=== PATIENT | male | born 1950 | race African-American/Black ===

== ENCOUNTER 2019-02-28 20:42 | Emergency (ER) | payer OTHER ==
--- OUTSIDE RECORDS SUMMARY | 2019-02-28 20:45 | XMS REPORT | Summary of Care ---
:1950 Author Organization [facility] - Health Address [address] [place] [address] Care Team Providers Name Role Phone Pcp, Patient Does Not Have A Primary Care Provider Encounter Details Date Type Department Care Team Description 10/16/2018 Orders Only [facility] Doctor Unassigned, No [address] [facility] [place] [address] [address] [place] [id number] Allergies No Known Allergiesdocumented as of this encounter (statuses as of 10/16/2018) Medications Medication Sig Dispensed Refills Start Date End Date Status amlodipine-benazepril Take 1 capsule by 0 Active 5-20 mg per capsule mouth daily. aspirin 81 mg chewable Take 1 tablet by 30 tablet 3 11/01/2016 Active tablet mouth daily. multivitamin tablet Take 1 tablet by 30 tablet 4 11/01/2016 Active mouth daily. [place]-3 Fatty Acids Take 2 tablets by 30 capsule 4 11/01/2016 Active (FISH OIL) 500 mg Cap mouth daily. Blood-Glucose Meter Use as directed, 1 Kit 0 01/28/2017 Active (BLOOD GLUCOSE TID, DX:E11.9 MONITORING) KitIndications: Type 2 diabetes mellitus without complication, without long-term current use of insulin magnesium oxide 400 mg Take 400 mg by 0 Active (241.3 mg magnesium) mouth daily. tablet flash glucose scanning 1 Each daily. 1 Each 0 04/06/2018 Active reader (FREESTYLE GT 14 DAY READER) MiscIndications: Type 2 diabetes mellitus without complication, without long-term current use of insulin flash glucose sensor 1 Each every 14 2 Kit 11 04/06/2018 Active (FREESTYLE GT 14 (fourteen) days. DAY SENSOR) KitIndications: Type 2 diabetes mellitus without complication, without long-term current use of insulin atorvastatin 10 mg Take 1 tablet by 90 tablet 3 04/06/2018 Active tabletIndications: mouth at bedtime. Type 2 diabetes mellitus without complication, without long-term current use of insulin metFORMIN 1,000 mg TAKE 1 TABLET BY 180 tablet 3 04/06/2018 Active tabletIndications: MOUTH TWICE A DAY Type 2 diabetes WITH MEALS mellitus without complication, without long-term current use of insulin gabapentin enacarbil Take 300 mg by 30 tablet 1 07/27/2018 Active (HORIZANT) 300 mg mouth daily. TbSRIndications: Diabetic neuropathy with neurologic complication ONETOUCH ULTRA BLUE USE DIRECTED, 300 Strip 0 07/31/2018 Active TEST STRIP TID, DX:E11.9 stripIndications: Type 2 diabetes mellitus without complication, without long-term current use of insulin documented as of this encounter (statuses as of 10/16/2018) Active Problems Problem Noted Date Numbness in feet 01/28/2017 Type 2 diabetes mellitus without complication, without long-term current 01/28 use of insulin Dyslipidemia 01/28/2017 Essential hypertension 01/28/2017 documented as of this encounter (statuses as of 10/16/2018) Social History Tobacco Use Types Packs/Day Years Used Date Never Smoker Alcohol Use Drinks/Week oz/Week Comments No Sex Assigned at Date Recorded Not on file Job Start Date Occupation Industry Not on file Not on file Not on file Travel History Travel Start Travel End No recent travel history available. documented as of this encounter Last Filed Vital Signs Not on filedocumented in this encounter Plan of Treatment Date Type Specialty Care Team Description 10/16/2018 Office Visit Endocrinology Diabetes & Bobby López [facility] Metabolism [address] [place], [place] [id number] Health Maintenance Due Date Last Done Comments HEPATITIS C (HCV) SCREEN 1950 CREATININE (SERUM) 11/20/1961 EYE EXAM 11/20/1961 URINE MICROALBUMIN 11/20/1961 DTaP,Tdap,and Td Vaccines (1 - 11/20/1970 Tdap) COLONOSCOPY 11/20/2001 Zoster Recombinant Vaccine 11/20/2001 (SHINGRIX) (1 of 2) Medicare Wellness Visit 11/20/2016 PNEUMOCOCCAL VACCINES 65+ (1 of 2 11/20/2016 - PCV13) LDL-C 11/01/2017 11/01/2016 FOOT EXAM 09/29/2018 09/29/2017, 09/29/2017, 06/03/2017, Additional history exists HgA1C 10/04/2018 04/06/2018, 09/29/2017, 06/03/2017, Additional history exists INFLUENZA VACCINE (#1) 2018 documented as of this encounter Procedures Procedure Name Priority Date/Time Associated Diagnosis Comments NO SHOW OR MISSED Routine 10/16/2018 8:28 AM APPOINTMENT POLICY CDT ACKNOWLEDGEMENT documented in this encounter Results Not on filedocumented in this encounter Insurance Payer Benefit Plan / Group Subscriber ID Effective Dates Phone Address Type AETNA AETNA HMO [id number] 2010-Present HMO documented as of this encounter
--- OUTSIDE RECORDS SUMMARY | 2019-02-28 20:45 | XMS REPORT ---
:1950 Author Organization [facility] Address [address] [place] [address] Care Team Providers Name Role Phone Unavailable Unavailable Unavailable Payers Payer Name Policy Type Policy Number Effective Date Expiration Date Problems This patient has no known problems. Allergies, Adverse Reactions, Alerts Allergy Allergy Status Severity Reaction(s) Onset Inactive Treating Comments Name Type Date Date Clinician No Known DA Active U 2018-08 Allergies 00:00:0 0 Medications This patient has no known medications. Results Test Description Test Time Test Comments Text Results Atomic Results Result Comments BASIC METABOLIC PANEL 2018-09-12 07:20:00 Test Item Value Reference Range Comments SODIUM (test code=NA) 141 MMOL/L 137-145 POTASSIUM (test code=K) 4.3 MMOL/L 3.5-5.1 CHLORIDE (test code=CL) 106 MMOL/L 98-107 CARBON DIOXIDE (test code=CO2) 29 MMOL/L 22-30 GLUCOSE (test code=GLU) 165 MG/DL 74-106 BLOOD UREA NITROGEN (test 12 MG/DL 9-20 code=BUN) GLOMERULAR FILTRATION RATE (test > 60 Reporting units: ml/min/1.73 m2 code=GFR) (Modified MDRD Formula)Reference Range: > or=60 ml/min/1.73 m2 CREATININE (test code=CREAT) 0.70 MG/DL 0.66-1.25 CALCIUM (test code=CA) 9.1 MG/DL 8.4-10.2 LIPID PROFILE (CORONARY RISK)2018-09-12 07:20:00 Test Item Value Reference Range Comments TRIGLYCERIDES (test code=TRIG) 47 MG/DL TRIGLYCERIDES REFERENCE RANGE:Normal: <150 mg/dLBorderline High: 150-199 mg/dLHigh: 200-499 mg/dLVery High: >=500 mg/dL CHOLESTEROL (test code=CHOL) 117 MG/DL <200 HDL CHOLESTEROL (test 29 MG/DL 40-59 code=HDL) LIPOPROTEIN LDL (test 87 MG/DL 0-99 code=LDL) OPTIMAL.........<100 mg/dLNEAR OPTIMAL/ABOVE OPTIMAL.........100-129 mg/dL BORDERLINE HIGH.........130-159 mg/dL HIGH.........160-189 mg/dL VERY HIGH.........>/=190 mg/dL [id number] 07:20:00 Test Item Value Reference Range Comments MAGNESIUM (test code=MAG) 2.2 MG/DL 1.6-2.3 PROTHROMBIN [id number] 07:10:00 Test Item Value Reference Range Comments PROTHROMBIN TIME PATIENT (test 11.4 SECONDS 9.6-11.6 code=PTP) INTERNATIONAL NORMAL RATIO 1.1 0.8-1.1 The INR is to be used only (test code=INR) for monitoring oral anticoagulanttherapy. INDICATION INR VALUE 1. Prophylaxis, deep venous thrombosis, including high risk surgery. 2.0 - 3.0 2. Prophylaxis, deep venous thrombosis, hip surgery, treatment for deep venous thrombosis or pulmonary prevention of systemic embolism in patients with valvular heart disease, atrial fibrillation, tissue heart valve, or acute myocardial infarction. 2.0 - 3.0 3. Mechanical prosthesis heart valves, recurrent systemic embolism. 3.0 - 4.5 PTT [id number] 07:10:00 Test Item Value Reference Range Comments PTT ACTIVATED (test code=APTT) 29.6 SECONDS 22.0-33.0 BASIC METABOLIC [id number] 07:10:00 Test Item Value Reference Range Comments SODIUM (test code=NA) 141 MMOL/L 137-145 POTASSIUM (test code=K) 4.3 MMOL/L 3.5-5.1 CHLORIDE (test code=CL) 106 MMOL/L 98-107 CARBON DIOXIDE (test code=CO2) 29 MMOL/L 22-30 GLUCOSE (test code=GLU) 165 MG/DL 74-106 BLOOD UREA NITROGEN (test 12 MG/DL 9-20 code=BUN) GLOMERULAR FILTRATION RATE > 60 Reporting units: ml/min/1.73 (test code=GFR) m2 (Modified MDRD Formula)Reference Range: > or=60 ml/min/1.73 m2 CREATININE (test code=CREAT) 0.70 MG/DL 0.66-1.25 CALCIUM (test code=CA) 9.1 MG/DL 8.4-10.2 LIPID PROFILE (CORONARY RISK)2018-09-12 07:10:00 Test Item Value Reference Range Comments TRIGLYCERIDES (test code=TRIG) 47 MG/DL TRIGLYCERIDES REFERENCE RANGE:Normal: <150 mg/dLBorderline High: 150-199 mg/dLHigh: 200-499 mg/dLVery High: >=500 mg/dL CHOLESTEROL (test code=CHOL) 117 MG/DL <200 HDL CHOLESTEROL (test 29 MG/DL 40-59 code=HDL) LIPOPROTEIN LDL (test MG/DL 0-99 code=LDL) [id number] 07:10:00 Test Item Value Reference Range Comments MAGNESIUM (test code=MAG) 2.2 MG/DL 1.6-2.3 CBC W/AUTO [id number] 06:46:00 Test Item Value Reference Range Comments WHITE BLOOD CELL (test code=WBC) 5.7 K/MM3 3.8-9.8 RED BLOOD CELL (test code=RBC) 4.65 M/MM3 3.95-5.67 HEMOGLOBIN (test code=HGB) 13.0 G/DL 12.4-16.7 HEMATOCRIT (test code=HCT) 41.1 % 35.9-49.5 MEAN CELL VOLUME (test code=MCV) 88 fL 81.7-96.1 MEAN CELL HGB (test code=MCH) 28.0 pg 27.6-33.2 MEAN CELL HGB CONCETRATION (test code=MCHC) 31.6 % 32.9-35.5 RED CELL DISTRIBUTION WIDTH (test code=RDW) 14.3 % 12.1-15.2 PLATELET COUNT (test code=PLT) 174 K/MM3 129-368 MEAN PLATELET VOLUME (test code=MPV) 10.4 fl 7.4-10.4 NEUTROPHIL % (test code=NT%) 65.3 % 43-75 IMMATURE GRANULOCYTE % (test code=IG%) 0.2 % 0.0-2.0 LYMPHOCYTE % (test code=LY%) 19.5 % 14-44 MONOCYTE % (test code=MO%) 11.3 % 4-13 EOSINOPHIL % (test code=EO%) 3.2 % 0-6 BASOPHIL % (test code=BA%) 0.5 % 0-2 NUCLEATED RBC % (test code=NRBC%) 0.0 % 0-1.0 NEUTROPHIL # (test code=NT#) 3.69 K/mm3 2.0-7.6 IMMATURE GRANULOCYTE # (test code=IG#) 0.01 x10 3/uL 0-0.03 LYMPHOCYTE # (test code=LY#) 1.10 K/mm3 1.0-3.8 MONOCYTE # (test code=MO#) 0.64 K/mm3 0.1-0.8 EOSINOPHIL # (test code=EO#) 0.18 K/mm3 0.0-0.2 BASOPHIL # (test code=BA#) 0.03 K/mm3 0.0-0.2 NUCLEATED RBC # (test code=NRBC#) 0.00 K/mm3 0.0-0.1
--- OUTSIDE RECORDS SUMMARY | 2019-02-28 20:45 | XMS REPORT | Summary of Care ---
:1950 Author Organization [facility] Address [address] [place] [id number] Care Team Providers Name Role Phone Pcp, Patient Does Not Have A Primary Care Provider Reason for Visit Reason Comments Refill Request Encounter Details Date Type Department Care Team Description 10/27/2018 Refill [facility] Endocrinology- Ken Cavazos MD Refill Request [address] Professional Office [place], [place] [id number] [place] [address] Dr. Romero [phone] [address] [place] [address] Allergies No Known Allergiesdocumented as of this encounter (statuses as of 10/27/2018) Medications Medication Sig Dispensed Refills Start Date End Date Status amlodipine-benazepr Take 1 0 Active il 5-20 mg per capsule by capsule mouth daily. aspirin 81 mg Take 1 tablet 30 tablet 3 11/01/2016 Active chewable tablet by mouth daily. multivitamin tablet Take 1 tablet 30 tablet 4 11/01/2016 Active by mouth daily. [place]-3 Fatty Acids Take 2 30 capsule 4 11/01/2016 Active (FISH OIL) 500 mg tablets by Cap mouth daily. Blood-Glucose Meter Use as 1 Kit 0 01/28/2017 Active (BLOOD GLUCOSE directed, MONITORING) TID, DX:E11.9 KitIndications: Type 2 diabetes mellitus without complication, without long-term current use of insulin magnesium oxide 400 Take 400 mg 0 Active mg (241.3 mg by mouth magnesium) tablet daily. atorvastatin 10 mg Take 1 tablet 90 tablet 3 04/06/2018 Active tabletIndications: by mouth at Type 2 diabetes bedtime. mellitus without complication, without long-term current use of insulin gabapentin Take 300 mg 30 tablet 1 07/27/2018 Active enacarbil by mouth (HORIZANT) 300 mg daily. TbSRIndications: Diabetic neuropathy with neurologic complication rivaroxaban Take 20 mg by 0 Active (XARELTO) 20 mg mouth. tablet sacubitril-valsarta Take 1 tablet 0 Active n (ENTRESTO) 49-51 by mouth. mg tablet furosemide 40 mg Take 40 mg by 0 Active tablet mouth daily. metFORMIN 1,000 mg TAKE 1 TABLET 180 tablet 3 10/16/2018 Active tabletIndications: BY MOUTH Type 2 diabetes TWICE A DAY mellitus without WITH MEALS complication, without long-term current use of insulin ONETOUCH VERIO Use to check 300 Strip 1 10/27/2018 Active stripIndications: blood sugar Type 2 diabetes 3X daily. mellitus without DX:E11.9 complication, without long-term current use of insulin ONETOUCH ULTRA BLUE USE 300 Strip 0 07/31/2018 10/27/2018 Discontinued TEST STRIP DIRECTED, stripIndications: TID, DX:E11.9 Type 2 diabetes mellitus without complication, without long-term current use of insulin documented as of this encounter (statuses as of 10/27/2018) Active Problems Problem Noted Date Numbness in feet 01/28/2017 Type 2 diabetes mellitus without complication, without long-term current 01/28 use of insulin Dyslipidemia 01/28/2017 Essential hypertension 01/28/2017 documented as of this encounter (statuses as of 10/27/2018) Social History Tobacco Use Types Packs/Day Years [...] Treatment Date Type Specialty Care Team Description 04/23/2019 Office Visit Endocrinology Diabetes & Bobby López Metabolism [address] [place] [address] [place] [address] [phone] Health Maintenance Due Date Last Done Comments HEPATITIS C (HCV) SCREEN 1950 CREATININE (SERUM) 11/20/1961 EYE EXAM 11/20/1961 URINE MICROALBUMIN 11/20/1961 DTaP,Tdap,and Td Vaccines (1 - 11/20/1970 Tdap) COLONOSCOPY 11/20/2001 Zoster Recombinant Vaccine 11/20/2001 (SHINGRIX) (1 of 2) Medicare Wellness Visit 11/20/2016 PNEUMOCOCCAL VACCINES 65+ (1 of 2 11/20/2016 - PCV13) LDL-C 11/01/2017 11/01/2016 FOOT EXAM 09/29/2018 09/29/2017, 09/29/2017, 06/03/2017, Additional history exists INFLUENZA VACCINE (#1) 2018 HgA1C 04/17/2019 10/16/2018, 04/06/2018, 09/29/2017, Additional history exists documented as of this encounter Results Not on filedocumented in this encounter Visit Diagnoses Diagnosis Type 2 diabetes mellitus without complication, without long-term current use of insulin documented in this encounter Insurance Payer Benefit Plan / Group Subscriber ID Effective Dates Phone Address Type AETNA AETNA HMO [id number] 2010-Present HMO documented as of this encounter
[2019-02-28] MEDS ORDERED: HYDROCODONE/APAP 5/325 MG TAB ONE (21:19)
[2019-02-28 21:34] LABS: Absolute Lymphocytes (CBC) 1.6 K/uL (0.7-4.9); Basophils % 0.8 % (0-1.3); Hematocrit 42.1 % (39.6-49.0); Lymphocytes % 20.3 % (15.3-44.8); MPV 8.8 fL (7.6-11.3); RBC Red Blood Cell Count 4.69 M/uL (4.33-5.43)
[2019-02-28 21:52] LABS: Bilirubin Total 0.9 mg/dL (0.2-1.0); Potassium 3.9 mmol/L (3.5-5.1); Protein, Total 7.4 g/dL (6.4-8.2)
--- NOTE | 2019-03-01 00:15 | EDPHYS ---
Physician Documentation [facility] Name: Noel Cobos Age: 68 yrs Sex: Male : 1950 Arrival Date: 02/28/2019 Time: 20:45 Bed 15 Private MD: ED Physician Jessica Watson HPI: 02/28 21:14 This 68 yrs old Black Male presents to ER via Ambulatory with complaints of Foot Injury.pm1 Historical: - Allergies: 20:56 No Known Allergies; aj1 - Home Meds: 20:56 aspirin 81 mg Oral chew 1 tab once daily [Active]; magnesium oxide 400 mg Oral tab aj1 daily [Active]; Entresto 97-103 mg oral tab 1 tab 2 times per day [Active]; Xarelto 20 mg oral tab 1 tab once daily [Active]; carvedilol 12.5 mg oral tab 1 tab every 12 hours [Active]; furosemide 40 mg Oral tab 1 tab once daily [Active]; atorvastatin 10 mg oral tab 1 tab once daily [Active]; metformin 1,000 mg Oral tab 1 tab 2 times per day [Active]; - PMHx: 20:56 Diabetes - NIDDM; Hyperlipidemia; Atrial Fib; CHF; Sleep Apnea; neuropathy; aj1 - Immunization history:: Flu vaccine is not up to date. - Social history:: Smoking status: Patient/guardian denies using tobacco. - Ebola Screening: : Patient denies travel to an Ebola-affected area in the 21 days before illness onset. Vital Signs: 20:56 BP 130 / 83; Pulse 64; Resp 18; Temp 97.8; Pulse Ox 97% on R/A; Weight 90.72 kg (R); aj1 Height 6 ft. 2 in. (187.96 cm) (R); Pain 6/10; 23:35 BP 131 / 84; Pulse 56; Resp 16; Pulse Ox 100% on R/A; Pain 3/10; aa1 03/01 01:18 BP 129 / 83; Pulse 61; Resp 16; Temp 97.6; Pulse Ox 99% on R/A; Pain 2/10; aa1 02/28 20:56 Body Mass Index 25.68 (90.72 kg, 187.96 cm) aj1 MDM: 02/28 21:01 Patient medically screened. pm1 03/01 00:12 Data reviewed: vital signs. Data interpreted: Pulse oximetry: on room air is 100 %. pm1 Interpretation: normal. Counseling: I had a detailed discussion with the patient and/or guardian regarding: the historical points, exam findings, and any diagnostic results supporting the discharge/admit diagnosis, lab results, radiology results, the need for outpatient follow up, to return to the emergency department if symptoms worsen or persist or if there are any questions or concerns that arise at home. 02/28 21:07 Order name: Foot Right 3 View XRAY pm1 02/28 21:08 Order name: CBC with Automated Diff; Complete Time: 23:44 EDMS 02/28 21:08 Order name: Comprehensive Metabolic Panel; Complete Time: 23:44 EDMS 02/28 21:07 Order name: IV Saline Lock; Complete Time: 21:29 pm1 Administered Medications: 02/28 21:21 Drug: [place] 5 mg-325 mg 1 tabs Route: PO; aa1 22:21 Follow up: Response: No adverse reaction; Pain is decreased aa1 03/01 00:27 Drug: Bactrim (160 mg-800 mg (DS) 1 tablet Route: PO; aa1 01:18 Follow up: Response: No adverse reaction aa1 00:27 Drug: Clindamycin 600 mg Route: IVPB; Infused Over: 30 mins; Site: right antecubital; aa1 :18 Follow up: IV Status: Completed infusion aa1 :27 Drug: Tetanus-Diphtheria Toxoid Adult 0.5 ml {Visual Manager: Omniture. Exp: aa1 01/07/2021. Lot #: [id number]. } Route: IM; Site: right deltoid; :18 Follow up: Response: No adverse reaction aa1 Disposition: 03/01/19 00:13 Discharged to Home. Impression: Cellulitis of right lower limb. - Condition is Stable. - Discharge Instructions: Cellulitis, Adult. - Prescriptions for Bactroban 2 % Topical Ointment - Apply to affected area 1 application by TOPICAL route every 12 hours; 30 gram. Clindamycin HCl 300 mg Oral Capsule - take 1 capsule by ORAL route every 6 hours for 10 days; 40 capsule. Tylenol- Codeine #3 300-30 mg Oral Tablet - take 2 tablets by ORAL route every 6 hours As needed; 20 tablet. Bactrim DS 800- 160 mg Oral Tablet - take 1 tablet by ORAL route every 12 hours for 10 days; 20 tablet. - Work release form, Medication Reconciliation Form, Thank You Letter, Antibiotic Education, Prescription Opioid Use form. - Follow up: Emergency Department; When: As needed; Reason: Worsening of condition. Follow up: Private Physician; When: 2 - 3 days; Reason: Recheck today's complaints, Continuance of care, Re-evaluation by your physician. - Problem is new. - Symptoms have improved. Addendum: 03/02/2019 04:34 Co-signature as Attending Physician, Jessica Watson MD. m a2 03/17/2019 17:54 Addendum: HPI: This 68 yrs old Male presents to the ER via ambulatory with complaints p m1 of right foot injury. He slipped and his right foot went underneath the edge of the cabinet and caused an abrasion to the dorsum of his foot. Occurred at home. Onset 1 week ago. Associated signs and symptoms: Negative for fever, discharge, numbness or tingling. The patient has not experienced similar symptoms in the past. It is unknown whether or not the patient has seen a physician recently. 18:00 Addendum: ROS: Constitutional: Negative for fever, chills, and weight loss, Neck: p m1 negative for injury, pain and swelling, Cardiovascular: negative for chest pain, palpitations, and edema, Respiratory: Negative for shortness of breath, cough, wheezing, and pleuritic chest pain, Abdomen/GI: Negative for abdominal pain, nausea, vomiting, diarrhea, and constipation, Back: negative for injury and pain, Neuro: Negative for headache, weakness, numbness, tingling, and seizure. MS/extremity: Positive for abrasion, tenderness and swelling to dorsum of right foot, Skin: Positive for abrasion to the dorsum of the right foot. 18:04 Addendum: Exam: Constitutional: This is a well developed, well nourished patient who is p m1 awake, alert, and in no acute distress. Head/Face: Normocephalic, atraumatic. Neck: Trachea midline, no cervical lymphadenopathy. Supple, FROM without nuchal rigidity, or vertebral point tenderness. No meningismus. Chest/axilla: Normal chest wall appearance and motion. Nontender with no deformity. No lesions are appreciated. Cardiovascular: No gallops, murmurs, or rubs. No pulse deficits. Respiratory: Lungs have equal breath sounds bilaterally, clear to auscultation. No rales, rhonchi, or wheezes noted. No increased work of breathing, no retraction or nasal flaring. Abdomen/GI: Soft, non-tender, with normal bowel sounds. No evidence of tenderness throughout. Back: No spinal tenderness. No costovertebral tenderness. Full range of motion. MS/Extremity: Pulses equal, no cyanosis. Neurovascular intact. FROM. Skin: Appearance: Normal except for affected area, injury, small abrasion to central aspect of dorsum of right foot. Small area of surrounding redness with bruising. Mild swelling to dorsum of right foot. No abscess present. Neuro: Orientation is normal, Motor is normal, moves all fours, Sensation is normal, no obvious gross deficits. Signatures: Dispatcher [employer] EDMS Nicole Phillips RN RN aj1 Maritza Abreu RN RN aa1 Carol Ann Olivas RN RN bb Burke Dietrich, WAD COMPRESSOR OPERATOR ADJUSTER WAD COMPRESSOR OPERATOR ADJUSTER pm1 Jessica Watson MD MD ma2 Corrections: (The following items were deleted from the chart) 03/01 01:20 00:13 03/01/2019 00:13 Discharged to Home. Impression: Cellulitis of right lower limb. aa1 Condition is Stable. Forms are Medication Reconciliation Form, Thank You Letter, Antibiotic Education, Prescription Opioid Use. Follow up: Emergency Department; When: As needed; Reason: Worsening of condition. Follow up: Private Physician; When: 2 - 3 days; Reason: Recheck today's complaints, Continuance of care, Re-evaluation by your physician. Problem is new. Symptoms have improved. pm1 01:34 01:20 03/01/2019 00:13 Discharged to Home. Impression: Cellulitis of right lower limb. bb Condition is Stable. Discharge Instructions: Cellulitis, Adult. Prescriptions for Bactroban 2 % Topical Ointment - Apply to affected area 1 application by TOPICAL route every 12 hours; 30 gram, Clindamycin HCl 300 mg Oral Capsule - take 1 capsule by ORAL route every 6 hours for 10 days; 40 capsule, Tylenol-Codeine #3 300-30 mg Oral Tablet - take 2 tablets by ORAL route every 6 hours As needed; 20 tablet, Bactrim DS 800-160 mg Oral Tablet - take 1 tablet by ORAL route every 12 hours for 10 days; 20 tablet. and Forms are Medication Reconciliation Form, Thank You Letter, Antibiotic Education, Prescription Opioid Use. Follow up: Emergency Department; When: As needed; Reason: Worsening of condition. Follow up: Private Physician; When: 2 - 3 days; Reason: Recheck today's complaints, Continuance of care, Re-evaluation by your physician. Problem is new. Symptoms have improved. aa1
--- NOTE | 2019-03-01 00:15 | ER ---
Nurse's Notes [facility] Name: Noel Cobos Age: 68 yrs Sex: Male : 1950 Arrival Date: 02/28/2019 Time: 20:45 Bed 15 Private MD: Diagnosis: Cellulitis of right lower limb Presentation: 02/28 20:48 Presenting complaint: Patient states: "I slipped a fell last Friday and my foot went aj1 under the cabinet and it put a cut on my foot and it looks like it could be infected now" Patient reports pain to right foot. Reports redness and swelling to foot, denies drainage. Transition of care: patient was not received from another setting of care. Onset of symptoms was February 28, 2019. Risk Assessment: Do you want to hurt yourself or someone else? Patient reports no desire to harm self or others. Initial Sepsis Screen: Does the patient meet any 2 criteria? No. Patient's initial sepsis screen is negative. Does the patient have a suspected source of infection? No. Patient's initial sepsis screen is negative. Care prior to arrival: None. 20:48 Method Of Arrival: Ambulatory aj1 20:48 Acuity: AUDREY 4 aj1 Triage Assessment: 20:56 General: Appears in no apparent distress. comfortable, Behavior is calm, cooperative, aj1 appropriate for age. Pain: Pain currently is 6 out of 10 on a pain scale. at worst was 10 out of 10 on a pain scale. Neuro: Level of Consciousness is awake, alert, obeys commands. Cardiovascular: Patient's skin is warm and dry. Respiratory: Airway is patent Respiratory effort is even, unlabored, Respiratory pattern is regular. Musculoskeletal: Range of motion: intact in all extremities. Injury Description: fall injury. Historical: - Allergies: 20:56 No Known Allergies; aj1 - Home Meds: 20:56 aspirin 81 mg Oral chew 1 tab once daily [Active]; magnesium oxide 400 mg Oral tab aj1 daily [Active]; Entresto 97-103 mg oral tab 1 tab 2 times per day [Active]; Xarelto 20 mg oral tab 1 tab once daily [Active]; carvedilol 12.5 mg oral tab 1 tab every 12 hours [Active]; furosemide 40 mg Oral tab 1 tab once daily [Active]; atorvastatin 10 mg oral tab 1 tab once daily [Active]; metformin 1,000 mg Oral tab 1 tab 2 times per day [Active]; - PMHx: 20:56 Diabetes - NIDDM; Hyperlipidemia; Atrial Fib; CHF; Sleep Apnea; neuropathy; aj1 - Immunization history:: Flu vaccine is not up to date. - Social history:: Smoking status: Patient/guardian denies using tobacco. - Ebola Screening: : Patient denies travel to an Ebola-affected area in the 21 days before illness onset. Screenin:26 Abuse screen: Denies threats or abuse. Denies injuries from another. Nutritional aa1 screening: No deficits noted. Tuberculosis screening: No symptoms or risk factors identified. Fall Risk None identified. Assessment: 21:22 General: Appears in no apparent distress. comfortable, Behavior is calm, cooperative, aa1 appropriate for age. Pain: Complains of pain in left foot. Neuro: Level of Consciousness is awake, alert, obeys commands, Oriented to person, place, time, situation, Moves all extremities. Full function Gait is steady. Respiratory: Airway is patent Respiratory effort is even, unlabored, Respiratory pattern is regular, symmetrical. GI: No signs and/or symptoms were reported involving the gastrointestinal system. : No signs and/or symptoms were reported regarding the genitourinary system. EENT: No signs and/or symptoms were reported regarding the EENT system. Derm: Skin is intact, is healthy with good turgor, Skin is pink, warm \\T\\ dry. Bruising that is on left foot. Musculoskeletal: Circulation, motion, and sensation intact. Capillary refill < 3 seconds, Swelling present in left foot. Injury Description: Abrasion sustained to dorsum of left foot is scabbed. 22:30 Reassessment: Patient appears in no apparent distress at this time. Patient and/or aa1 family updated on plan of care and expected duration. Pain level reassessed. Patient is alert, oriented x 3, equal unlabored respirations, skin warm/dry/pink. Awaiting lab results. 23:35 Reassessment: Patient appears in no apparent distress at this time. Patient and/or aa1 family updated on plan of care and expected duration. Pain level reassessed. Patient is alert, oriented x 3, equal unlabored respirations, skin warm/dry/pink. Awaiting provider reassessment. 01/13 00:27 Reassessment: Patient appears in no apparent distress at this time. Patient and/or aa1 family updated on plan of care and expected duration. Pain level reassessed. Patient is alert, oriented x 3, equal unlabored respirations, skin warm/dry/pink. Patient denies pain at this time. Pt to be dc'd once IV clindamycin complete. 01:18 Reassessment: Patient appears in no apparent distress at this time. Patient is alert, aa1 oriented x 3, equal unlabored respirations, skin warm/dry/pink. Discussed d/c \\T\\ f/u instructions with pt; denies questions or concerns at this time. Ambulatory to lobby with steady gait. Patient states feeling better. Vital Signs: 02/28 20:56 BP 130 / 83; Pulse 64; Resp 18; Temp 97.8; Pulse Ox 97% on R/A; Weight 90.72 kg (R); aj1 Height 6 ft. 2 in. (187.96 cm) (R); Pain 6/10; 23:35 BP 131 / 84; Pulse 56; Resp 16; Pulse Ox 100% on R/A; Pain 3/10; aa1 03/01 01:18 BP 129 / 83; Pulse 61; Resp 16; Temp 97.6; Pulse Ox 99% on R/A; Pain 2/10; aa1 02/28 20:56 Body Mass Index 25.68 (90.72 kg, 187.96 cm) aj1 ED Course: 02/28 20:45 Patient arrived in ED. jg7 20:50 Triage completed. aj1 20:56 Arm band placed on Patient placed in an exam room. aj1 21:01 Burke Dietrich NP is PHCP. pm1 21:01 Jessica Watson MD is Attending Physician. pm1 21:08 Maritza Abreu, ANUJ is Primary Nurse. aa1 21:25 Inserted saline lock: 20 gauge in right antecubital area, using aseptic technique. ds4 Blood collected. 21:26 Patient has correct armband on for positive identification. Bed in low position. Call aa1 light in reach. Pulse ox on. NIBP on. 21:29 CBC with Automated Diff Sent. ds4 21:30 Comprehensive Metabolic Panel Sent. ds4 21:48 Foot Right 3 View XRAY In Process Unspecified. EDMS 03/01 01:18 No provider procedures requiring assistance completed. IV discontinued, intact, aa1 bleeding controlled, No redness/swelling at site. Pressure dressing applied. 01:34 Primary Nurse role handed off by Maritza Abreu RN bb Administered Medications: 02/28 21:21 Drug: Ringling 5 mg-325 mg 1 tabs Route: PO; aa1 22:21 Follow up: Response: No adverse reaction; Pain is decreased aa1 03/01 00:27 Drug: Bactrim (160 mg-800 mg (DS) 1 tablet Route: PO; aa1 01:18 Follow up: Response: No adverse reaction aa1 00:27 Drug: Clindamycin 600 mg Route: IVPB; Infused Over: 30 mins; Site: right antecubital; aa1 :18 Follow up: IV Status: Completed infusion aa1 :27 Drug: Tetanus-Diphtheria Toxoid Adult 0.5 ml {Sterilisation Technician: Biletu. Exp: aa1 01/07/2021. Lot #: [id number]. } Route: IM; Site: right deltoid; 01:18 Follow up: Response: No adverse reaction aa1 Outcome: 00:13 Discharge ordered by MD. pm1 01:18 Discharged to home ambulatory, with significant other. aa1 01:18 Condition: good 01:18 Discharge instructions given to patient, significant other, Instructed on discharge instructions, follow up and referral plans. medication usage, Demonstrated understanding of instructions, follow-up care, medications, Prescriptions given X 4. 01:20 Patient left the ED. aa1 01:34 Patient left the ED. bb Signatures: Dispatcher [employer] EDIL Nicole Phillips RN RN aj1 Maritza Abreu, RN RN aa1 Carol Ann Olivas RN RN Juan Daniel Cota ds4 Burke Dietrich NP PNEUMATIC SYSTEM CONVEYOR OPERATOR pm1 Simona Quiñonez jg7
[2019-03-01] MEDS ORDERED: CLINDAMYCIN 600MG/D5W 600 MG/50 ML BAG IV ONE (00:28)
[2019-03-01] MEDS ORDERED: TETANUS & DIPHTHERIA TOX,ADULT 0.5 ML VIAL ONE (00:28)
[2019-03-01] MEDS ORDERED: SMZ./TMP. 800/160 MG TABLET ONE (00:28)
[2019-03-01 02:03] VITALS: BP 129/83; TEMP 97.6; O2SAT 99
--- NOTE | 2019-03-01 08:10 | RAD REPORT ---
EXAM DESCRIPTION: RAD - Foot Right 3 View - 02/28/2019 9:48 pm CLINICAL HISTORY: Right foot pain FINDINGS: No fracture or dislocation is seen No bone or joint abnormality noted
== END 2019-03-01 01:34 | disposition home or self-care (01) ==
LOC: ER 20:42
DX: L03.115 Cellulitis of right lower limb (principal); E11.9 Type 2 diabetes mellitus without complications; E78.5 Hyperlipidemia, unspecified; I48.91 Unspecified atrial fibrillation; I50.9 Heart failure, unspecified
CPT/HCPCS: 36415; 80053; 85025; 90471; 90714; 96365; 99284

== ENCOUNTER 2019-12-03 15:19 | Emergency (ER) | payer OTHER ==
--- OUTSIDE RECORDS SUMMARY | 2019-12-03 15:22 | XMS REPORT | Summary of Care ---
:1950 Author Organization [facility] Address [address] [place] [id number] Care Team Providers Name Role Phone Pcp, Patient Does Not Have A Primary Care Provider +1-000-00 0-0000 Reason for Visit Reason Comments Refill Request Encounter Details Date Type Department Care Team Description 10/31/2019 Refill [facility] Gonzalez Hernandez MD Refill Request Neurology-[address] [place] [id number] [address] [place] [address] [phone] Allergies No Known Allergiesdocumented as of this encounter (statuses as of 11/10/2019) Medications Medication Sig Dispensed Refills Start Date End Date Status amlodipine-benaze Take 1 0 Ac tive pril 5-20 mg per capsule by capsule mouth daily. aspirin 81 mg Take 1 30 tablet 3 11/01/2016 Activ e chewable tablet tablet by mouth daily. multivitamin Take 1 30 tablet 4 11/01/2016 Active tablet tablet by mouth daily. [place]-3 Fatty Take 2 30 capsule 4 11/01/2016 Acti ve Acids (FISH OIL) tablets by 500 mg Cap mouth daily. Blood-Glucose Use as 1 Kit 0 01/28/2017 Activ e Meter (BLOOD directed, GLUCOSE TID, MONITORING) DX:E11.9 KitIndications: Type 2 diabetes mellitus without complication, without long-term current use of insulin magnesium oxide Take 400 mg 0 Ac tive 400 mg (241.3 mg by mouth magnesium) tablet daily. rivaroxaban Take 20 mg 0 Active (XARELTO) 20 mg by mouth. tablet sacubitril-valsar Take 1 0 Ac tive osuna (ENTRESTO) tablet by 49-51 mg tablet mouth. furosemide 40 mg Take 40 mg 0 Ac tive tablet by mouth daily. ONETOUCH VERIO Use to check 300 Strip 1 10/27/2018 A ctive stripIndications: blood sugar Type 2 diabetes 3X daily. mellitus without DX:E11.9 complication, without long-term current use of insulin GARLIC ORAL Take by 0 Active mouth. gabapentin Take by 0 Active enacarbil mouth. (HORIZANT) 300 mg TbSR atorvastatin 40 Take 40 mg 0 Act gaby mg tablet by mouth at bedtime. metformin ER 750 Take 1 180 tablet 3 10/22/2019 A ctive mg 24 hr tablet by tabletIndications mouth 2 : Type 2 diabetes (two) times mellitus without daily. complication, without long-term current use of insulin GABAPENTIN 300 mg TAKE 1 180 capsule 1 11/10/2019 Active capsuleIndication CAPSULE BY s: Diabetic MOUTH TWICE neuropathy with A DAY neurologic complication GABAPENTIN 300 mg TAKE 1 1 capsule 0 05/11/2019 D iscontinued capsuleIndication CAPSULE BY 0 ( Reorder) s: Diabetic MOUTH TWICE neuropathy with A DAY neurologic complication documented as of this encounter (statuses as of 11/10/2019) Active Problems Problem Noted Date Numbness in feet 01/28/2017 Type 2 diabetes mellitus without complication, without long-term current 01/28/2017 use of insulin Dyslipidemia 01/28/2017 Essential hypertension 01/28/2017 documented as of this encounter (statuses as of 11/10/2019) Social History Tobacco Use Types Packs/Day Years Used Date Never Smoker Smokeless Tobacco: Never Used Alcohol Use Drinks/Week oz/Week Comments No Sex Assigned at Date Recorded Not on file COVID-19 Exposure Response Date Recorded In the last month, have you been in contact with No / Unsure 10/22/2019 9:37 AM CDT someone who was confirmed or suspected to have Coronavirus / COVID-19? documented as of this encounter Last Filed Vital Signs Not on filedocumented in this encounter Miscellaneous Notes Telephone Encounter - Feli Ritchie LVN - 11/03/2019 10:49 AM CDTDr. Hernandez, Pharmacy has sent a refill request for Gabapentin 300 mg tabs. ROBBIE:3-20-20 Impression: I recommended that the patient try the Horizant, I had also suggested a TENS unit, low-level electrical stimulation particularly in the feet could help with his neuropathic pain symptoms. Would you like to refill the gabapentin 300 mg or have patient take the Horizant? Please review and advise. documented in this encounter Plan of Treatment Date Type Specialty Care Team Description 04/21/2020 Office Visit Endocrinology Diabetes & Bobby Lira MD Metabolism [address] [facility] [address] [place] [address] [phone] Health Maintenance Due Date Last Done Comments HEPATITIS C (HCV) SCREEN 1950 CREATININE (SERUM) 11/20/1961 EYE EXAM 11/20/1961 URINE MICROALBUMIN 11/20/1961 DTaP,Tdap,and Td Vaccines (1 - 11/20/1970 Tdap) COLON CANCER SCREENING ANNUAL 11/20/2001 FIT/FOBT COLON CANCER SCREENING FIT DNA 11/20/2001 EVERY 3 YEARS COLON CANCER SCREENING 11/20/2001 SIGMOIDOSCOPY EVERY 5 YEARS COLONOSCOPY 11/20/2001 Colorectal Cancer Screening 11/20/2001 Zoster Recombinant Vaccine 11/20/2001 (SHINGRIX) (1 of 2) Medicare Wellness Visit 11/20/2016 PNEUMOCOCCAL VACCINES 65+ (1 of 1 11/20/2016 - PPSV23) LDL-C 11/01/2017 11/01/2016 FOOT EXAM 09/29/2018 09/29/2017, 09/29/2017, 06/03/2017, Additional history exists INFLUENZA VACCINE (#1) 2019 HgA1C 04/20/2020 10/22/2019, 04/23/2019, 10/16/2018, Additional history exists Depression Screening 07/08/2020 07/09/2019 documented as of this encounter Results Not on filedocumented in this encounter Visit Diagnoses Diagnosis Diabetic neuropathy with neurologic comp lication Type II or unspecified type diabetes girma litus with neurological manifestations, not stated as uncontrolled documented in this encounter Insurance Payer Benefit Plan / Group Subscriber ID Effective Dates Phone Address Type AETNA AETNA HMO [id number] 2010-Present [place] documented as of this encounter
--- OUTSIDE RECORDS SUMMARY | 2019-12-03 15:22 | XMS REPORT | Summary of Care ---
:1950 Author Organization [facility] Address [address] [place] [id number] Care Team Providers Name Role Phone Pcp, Patient Does Not Have A Primary Care Provider +1-000-00 0-0000 Reason for Visit Reason Comments Refill Request Encounter Details Date Type Department Care Team Description 11/04/2019 Telephone [facility] Gonzalez Hernandez MD Refill Request Neurology-[address] [place] [id number] [address] [place] [address] [phone] Allergies No Known Allergiesdocumented as of this encounter (statuses as of 11/09/2019) Medications Medication Sig Dispensed Refills Start Date End Date Status amlodipine-benazep Take 1 0 A ctive ril 5-20 mg per capsule by capsule mouth daily. aspirin 81 mg Take 1 30 tablet 3 11/01/2016 Activ e chewable tablet tablet by mouth daily. multivitamin Take 1 30 tablet 4 11/01/2016 Active tablet tablet by mouth daily. [place]-3 Fatty Take 2 30 capsule 4 11/01/2016 [...] Active (XARELTO) 20 mg by mouth. tablet sacubitril-valsart Take 1 0 A ctive an (ENTRESTO) tablet by 49-51 mg tablet mouth. [...] mouth. (HORIZANT) 300 mg TbSR atorvastatin 40 mg Take 40 mg 0 Active tablet by mouth at bedtime. metformin ER 750 Take 1 180 tablet 3 10/22/2019 A ctive mg 24 hr tablet by tabletIndications: mouth 2 Type 2 diabetes (two) times mellitus without daily. complication, without long-term current use of insulin gabapentin 300 mg Take 1 60 capsule 3 11/09/2019 Active capsuleIndications capsule by : Diabetic mouth 2 neuropathy with (two) times neurologic daily. complication GABAPENTIN 300 mg TAKE 1 1 capsule 0 05/11/2019 D iscontinued capsuleIndications CAPSULE BY 0 (Reorder) : Diabetic MOUTH TWICE neuropathy with A DAY neurologic complication documented as of this encounter (statuses as of 11/09/2019) Active Problems Problem Noted Date Numbness in feet 01/28/2017 Type 2 diabetes mellitus without complication, without long-term current 01/28/2017 use of insulin Dyslipidemia 01/28/2017 Essential hypertension 01/28/2017 documented as of this encounter (statuses as of 11/09/2019) Social History Tobacco Use Types Packs/Day Years [...] this encounter Miscellaneous Notes Telephone Encounter - Shelby Parikh - 11/09/2019 10:19 AM CDTNOV not scheduled ROBBIE 05/07/19 Per last chart note, medication refilled elephone Encounter - Brianne Laughlin - 11/04/2019 3:21 PM CDTNoel Cobos is a 68 year old male patient calling for refill on GABAPENTIN 300 mg capsule. [id number] [place], [place] - [address] [facility] [address] [facility] [id number] documented in this encounter Plan of Treatment Date Type Specialty Care Team Description 04/21/2020 Office Visit Endocrinology Diabetes & Bobby Lira MD Metabolism [address] [place] [address] [phone] Health Maintenance Due Date Last Done Comments [...] Effective Dates Phone Address Type AETNA AETNA O [id number] 2010-Present [place] documented as of this encounter
--- OUTSIDE RECORDS SUMMARY | 2019-12-03 15:22 | XMS REPORT | Summary of Care ---
:1950 Author Organization [facility] Address [address] [place] [id number] Care Team Providers Name Role Phone Pcp, Patient Does Not Have A Primary Care Provider +1-000-00 0-0000 Reason for Visit Reason Comments Refill Request Metformin 1,000 MG Encounter Details Date Type Department Care Team Description 10/01/2019 Telephone [facility] Bobby López, Refill Re madhav Endocrinology- (Metformin 1,000 MG) [address] [facility], [address] [place], [place] [id number] [place] [address] [phone] [id number] [phone] Allergies No Known Allergiesdocumented as of this encounter (statuses as of 10/04/2019) Medications Medication Sig Dispensed Refills Start Date End Date Status amlodipine-benazep Take 1 0 A ctive ril 5-20 mg per capsule by capsule mouth daily. aspirin 81 mg Take 1 30 tablet 3 11/01/2016 Activ e chewable tablet tablet by mouth daily. multivitamin Take 1 30 tablet 4 11/01/2016 Active tablet tablet by mouth daily. [place]-3 Fatty Take 2 30 capsule 4 11/01/2016 [...] tablet daily. atorvastatin 10 mg Take 1 90 tablet 3 04/06/2018 Active tabletIndications: tablet by Type 2 diabetes mouth at mellitus without bedtime. complication, without long-term current use of insulin rivaroxaban Take 20 mg 0 Active (XARELTO) [...] of insulin GABAPENTIN 300 mg TAKE 1 1 capsule 0 05/11/2019 A ctive capsuleIndications CAPSULE BY : Diabetic MOUTH TWICE neuropathy with A DAY neurologic complication GARLIC ORAL Take by 0 Active mouth. multivit,thx,calci Take by 0 A ctive um,iron,mins mouth. (MULTIVITAMIN AND MINERAL ORAL) metFORMIN 1,000 mg TAKE 1 180 tablet 0 10/01/2019 Active tabletIndications: TABLET BY Type 2 diabetes MOUTH TWICE mellitus without A DAY WITH complication, MEALS without long-term current use of insulin metFORMIN 1,000 mg TAKE 1 180 tablet 3 10/16/2018 Discontinued tabletIndications: TABLET BY 0 ( Reorder) Type 2 diabetes MOUTH TWICE mellitus without A DAY WITH complication, MEALS without long-term current use of insulin documented as of this encounter (statuses as of 10/04/2019) Active Problems Problem Noted Date Numbness in feet 01/28/2017 Type 2 diabetes mellitus without complication, without long-term current 01/28/2017 use of insulin Dyslipidemia 01/28/2017 Essential hypertension 01/28/2017 documented as of this encounter (statuses as of 10/04/2019) Social History Tobacco Use Types Packs/Day Years Used Date Never Smoker Alcohol Use Drinks/Week oz/Week Comments No Sex Assigned at Date Recorded Not on file documented as of this encounter Last Filed Vital Signs Not on filedocumented in this encounter Miscellaneous Notes Telephone Encounter - Iveth Medellin MA - 10/01/2019 3:14 PM CDTLOV: NOV:10/22/2019 Plan: Continue metformin 1000 mg twice daily Refills sent to pharmacy. documented in this encounter Plan of Treatment Date Type Specialty Care Team Description 10/22/2019 Office Visit Endocrinology Diabetes & Nikolai y, Bobby Bartholomew MD Metabolism [address] [place], [place] [address] [phone] 11/05/2019 Office Visit Urology Marc Torres MD [address] [place] [phone] Health Maintenance Due Date Last Done Comments [...] history exists INFLUENZA VACCINE (#1) 2019 HgA1C 10/24/2019 04/23/2019, 10/16/2018, 04/06/2018, Additional history exists Depression Screening 07/08/2020 07/09/2019 documented as of this encounter Results Not on filedocumented in this encounter Visit Diagnoses Diagnosis Type 2 diabetes mellitus without complic ation, without long-term current use of insulin documented in this encounter Insurance Payer Benefit Plan / Group Subscriber ID Effective Dates Phone Address Type AETNA AETNA HMO [id number] 2010-Present [place] documented as of this encounter
--- OUTSIDE RECORDS SUMMARY | 2019-12-03 15:23 | XMS REPORT | Summary of Care ---
:1950 Author Organization [facility] Address [address] [place] [address] Care Team Providers Name Role Phone Pcp, Patient Does Not Have A Primary Care Provider +1-000-00 0-0000 Reason for Visit Reason Comments Follow-up Diabetes Mellitus II LAB POCT a1c done in office toda y Encounter Details Date Type Department Care Team Description 10/22/2019 Office Visit [facility] Bobby López, Type 2 di abetes mellitus without complication, without long-term current use of insulin (Primary Dx); Endocrinology- MD Essential hypertension; [address] Dyslipidemia 146 [facility] [address], [address] [place] [address] [place], [place] [phone] [id number] [phone] Allergies No Known Allergiesdocumented as of this encounter (statuses as of 2019) Medications Medication Sig Dispensed Refills Start Date End Date Status amlodipine-benazep Take 1 0 A ctive ril 5-20 mg per capsule by capsule mouth daily. aspirin 81 mg Take 1 30 tablet 3 11/01/2016 Activ e chewable tablet tablet by mouth daily. multivitamin Take 1 30 tablet 4 11/01/2016 Active tablet tablet by mouth daily. Stebbins-3 Fatty Take 2 30 capsule 4 11/01/2016 [...] of insulin atorvastatin 10 mg Take 1 90 tablet 3 04/06/2018 Discontinued tabletIndications: tablet by 0 Type 2 diabetes mouth at mellitus without bedtime. complication, without long-term current use of insulin GABAPENTIN 300 mg TAKE 1 1 capsule 0 05/11/2019 D iscontinued capsuleIndications CAPSULE BY 0 (Reorder) : Diabetic MOUTH TWICE neuropathy with A DAY neurologic complication multivit,thx,calci Take by 0 D iscontinued um,iron,mins mouth. 0 (MULTIVITAMIN AND MINERAL ORAL) metFORMIN 1,000 mg TAKE 1 180 tablet 0 10/01/2019 Discontinued tabletIndications: TABLET BY 0 Type 2 diabetes MOUTH TWICE mellitus without A DAY WITH complication, MEALS without long-term current use of insulin documented as of this encounter (statuses as of 2019) Active Problems Problem Noted Date Numbness in feet 01/28/2017 Type 2 diabetes mellitus without complication, without long-term current 01/28/2017 use of insulin Dyslipidemia 01/28/2017 Essential hypertension 01/28/2017 documented as of this encounter (statuses as of 2019) Social History Tobacco Use Types Packs/Day Years [...] of this encounter Last Filed Vital Signs Vital Sign Reading Time Taken Comments Blood Pressure 119/79 10/22/2019 9:50 AM CDT Pulse 71 10/22/2019 9:50 AM CDT Temperature - - Respiratory Rate 19 10/22/2019 9:50 AM CDT Oxygen Saturation - - Inhaled Oxygen Concentration - - Weight 91.4 kg (201 lb 6.4 oz) 10/22/2019 9:50 AM CDT Height 188 cm (6' 2") 10/22/2019 9:50 AM CDT Body Mass Index 25.86 10/22/2019 9:50 AM CDT documented in this encounter Patient Instructions Patient InstructionsBobby López MD - 10/22/2019 9:30 AM CDTSwitch to metformin 750 mg extended release twice daily. Continue to work on improving your eating habits and avoiding fried foods. Continue your physical activity. documented in this encounter Progress Notes Bobby López MD - 10/22/2019 9:30 AM CDT Chief Complaint Patient presents with Follow-up Diabetes Mellitus II LAB POCT a1c done in office today HPI Patient is a 69 year old man with CHF, atrial fibrillation who is here today for follow up on type 2DM. Glucose meter was downloaded and seems his FBG range 120- 140s. Notes he occasionally checks and typically will only check in the mornings. Hypoglycaemia isn't a feature. He is on metformin 1000 mgtwice daily. He notes an increase in loose stools with taking this medication. Eating habits are variable but he is consistent with walking for exercise. Pt c/o significant neuropathy. Additionally, patient c/o ED. On Viagra with no improvement. Last Lab Results Health Maintenance Due POCT HBA1C (%) Date Value 10/22/2019 7.0 (A) Diabetes related Health Maintenance Due Topic Date Due EYE EXAM 11/20/1961 URINE MICROALBUMIN 11/20/1961 CREATININE (SERUM) 11/20/1961 PNEUMOCOCCAL VACCINES 65+ (1 of 1 - PPSV23) 11/20/2016 LDL-C 11/01/2017 FOOT EXAM 09/29/2018 Previous Pneumococcal / Influenza Immunizations No immunizations on file. Recent Effervescent Salts Compounder Visits None Recent Ophthalmology Visits None No results found for: CREAT No results found for: ALBU No results found for: CHOL No results found for: TRIG No results found for: LDL Diabetes Relevant Medication Classes Last refreshed: 11/10/2019 3:02 PM: Prescribed DAGO inhibitor No Last refreshed: 11/10/2019 3:02 PM: Prescribed ARBs No Last refreshed: 11/10/2019 3:02 PM: Prescribed statins Yes Last refreshed: 11/10/2019 3:02 PM: Prescribed antiplatelets No Last refreshed: 11/10/2019 3:02 PM: Prescribed aspirin Yes Last refreshed: 11/10/2019 3:02 PM: On Fibrates No Current as of: 11/10/2019 3:02 PM HISTORY Reviewed past medical, surgical, social, family history and no changes REVIEW OF SYSTEMS Constitutional: Denies weight changes Eyes: denies blurry vision, denies decreased vision and denies diplopia. Cardiovascular: denies chest pain and denies palpitations. Respiratory: denies chest congestion and denies shortness of breath. Gastrointestinal: denies abdominal pain, denies constipation, denies diarrhea and denies nausea. Musculoskeletal: Denies myalgias Neuro: +paraesthesias Endocrine: Denies intolerance to cold or heat PHYSICAL EXAM BP 119/79 (BP Location: Left arm, Patient Position: Sitting, BP CUFF SIZE: Adult Large) | Pulse 71| Resp 19 | Ht 6' 2" (1.88 m) | Wt 201 lb 6.4 oz (91.4 kg) | BMI 25.86 kg/m General: alert, oriented times three, no apparent distress, appearing age appropriate. Neck: no acanthosis nigricans and negative findings: carotids without bruits Lungs: no wheezes or crackles. CTAB Heart: regular rate and rhythm. No murmurs Neuro: negative findings: no tremor noted. Component Latest Ref Rng & Units 09/29/2017 06/03/2017 01/28/2017 11/01/2016 9:40 AM 12:00 AM 2:01 PM 12:00 AM POCT T. CHOL 240 mg/dL 165 POCT HDL 60 mg/dL 31 POCT TRIGL 400 mg/dL 73 POCT TC/HDL RATIO 5 3.9 POCT LDL 160 mg/dL 120 POCT HBA1C 4 - 6 % 8.2 (A) 8.1 (A) 8.0 (A) Component Latest Ref Rng & Units 04/06/2018 09/29/2017 06/03/2017 8:47 AM 9:40 AM 12:00 AM POCT HBA1C 4 - 6 % 8.0 (A) 8.2 (A) 8.1 (A) Recent Labs 10/22/19 [id number] 7.0* ASSESSMENT ICD-10-CM ICD-9-CM 1. Type 2 diabetes mellitus without complication, without long-term current use of insulin E11.9 250.00 A1c shows moderate control of DM type 2. Switch to metformin 750 mg ER twice daily. Emphasized lifestyle modifications. Orders Placed This Encounter Procedures POCT HEMOGLOBIN A1C TEST documented in this encounter Plan of Treatment Date Type Specialty Care Team Description 04/21/2020 Office Visit Endocrinology Diabetes & Bobby Lira MD Metabolism [address] [place] [address] 15 [phone] Health Maintenance Due Date Last Done Comments [...] 07/08/2020 07/09/2019 documented as of this encounter Procedures Procedure Name Priority Date/Time Associated Diagnosis Comme nts POCT HEMOGLOBIN A1C Routine 10/22/2019 Type 2 diabetes Resul ts for this TEST mellitus without procedure a re in the complication, without result s section. long-term current use of insulin documented in this encounter Results POCT HEMOGLOBIN A1C TEST (10/22/2019) Pathologist Sig nature POCT HBA1C 7.0 (A) 4 - 6 % Specimen Blood - CAPILLARY documented in this encounter Visit Diagnoses Diagnosis Type 2 diabetes mellitus without complic ation, without long-term current use of insulin - Primary Essential hypertension Unspecified essential hypertension Dyslipidemia Other and unspecified hyperlipidemia documented in this encounter documented as of this encounter
--- OUTSIDE RECORDS SUMMARY | 2019-12-03 15:23 | XMS REPORT | Summary of Care ---
:1950 Author Organization [facility] Address [address] [place] [address] Care Team Providers Name Role Phone Pcp, Patient Does Not Have A Primary Care Provider +1-000-00 0-0000 Reason for Visit Reason Comments Follow-up Diabetes Mellitus II LAB POCT a1c done in office toda y Encounter Details Date Type Department Care Team Description 10/22/2019 Office Visit [facility] Bobby López, Type 2 di abetes mellitus without complication, without long-term current use of insulin (Primary Dx); Endocrinology- MD Essential hypertension; [address] Dyslipidemia 146 [facility] [address], [address] [place] [address] [place], [place] [phone] [id number] [phone] Allergies No Known Allergiesdocumented as of this [...] 11/01/2016 Active tablet tablet by mouth daily. Romeo-3 Fatty Take 2 30 capsule 4 11/01/2016 [...] Influenza Immunizations No immunizations on file. Recent Arts Administrator Or Manager Visits None Recent Ophthalmology Visits None No [...] 8.2 (A) 8.1 (A) Recent Labs 10/22/19 [id number] 7.0* ASSESSMENT ICD-10-CM ICD-9-CM 1. Type 2 [...] Endocrinology Diabetes & Bobby Lira MD Metabolism [address] [place] [address] 15 [phone] Health Maintenance Due Date Last Done Comments [...]
--- NOTE | 2019-12-03 17:13 | RAD REPORT ---
EXAM DESCRIPTION: US - Extrem Venous W Compress Kalia - 12/03/2019 5:05 pm CLINICAL HISTORY: Pain;Swelling Bilateral leg edema and swelling. COMPARISON: No comparisons TECHNIQUE: Real-time sonographic interrogation of the left and right lower extremity deep venous sys tems was performed. FINDINGS: Normal compressibility, flow augmentation, phasic flow and spontaneous flow is identified in both the left and right lower extremity deep venous systems. IMPRESSION: No sonographic evidence of left or right lower extremity deep venous thrombosis.
--- NOTE | 2019-12-03 17:15 | RAD REPORT ---
EXAM DESCRIPTION: RAD - Chest Single View - 12/03/2019 5:08 pm CLINICAL HISTORY: SWELLING Chest pain. COMPARISON: No comparisons FINDINGS: Portable technique limits examination quality. The lungs are grossly clear. The heart is mildly prominent in size. No displaced fractures. IMPRESSION: No acute intrathoracic process suspected.
[2019-12-03] MEDS ORDERED: FUROSEMIDE 40 MG/4 ML VIAL ONE (17:39)
[2019-12-03 17:59] LABS: Potassium 3.9 mmol/L (3.5-5.1)
--- NOTE | 2019-12-03 18:08 | EDPHYS ---
Physician Documentation [facility] Name: Noel Cobos Age: 69 yrs Sex: Male : 1950 Arrival Date: 12/03/2019 Time: 15:21 Bed 16 Private MD: Sher Balbuena E ED Physician Bobby Sanchez HPI: 12/02 18:06 This 69 yrs old Black Male presents to ER via Ambulatory with complaints of Leg Pain, kb Leg Swelling. 18:06 The patient presents with swelling. The complaints affect the right leg and left leg. kb Context: the patient can fully bear weight, the patient is able to ambulate. Onset: The symptoms/episode began/occurred 7 day(s) ago. Modifying factors: The symptoms are alleviated by elevating leg, the symptoms are aggravated by nothing. Associated signs and symptoms: Pertinent positives: swelling, Pertinent negatives calf tenderness, fever, nausea, numbness, rash, tingling, vomiting, warmth, weakness. Treatment prior to arrival includes: no previous treatment. Severity of symptoms: At their worst the symptoms were moderate, severe, in the emergency department the symptoms have improved. The patient has not experienced similar symptoms in the past. The patient has not recently seen a physician. Pt reports lower extremity edema that started on Friday. States he went to the clinic and was told to come get an US to r/o DVT and if it was negative then he needed to double his lasix for 2 days.. Historical: - Allergies: 15:35 No Known Allergies; em - PMHx: 15:35 Atrial Fib; CHF; Diabetes - NIDDM; neuropathy; Hyperlipidemia; Sleep Apnea; em - PSHx: 15:35 Hernia repair; right foot sx; em - Immunization history:: Adult Immunizations up to date. - Social history:: Smoking status: Patient denies any tobacco usage or history of. ROS: 18:04 Constitutional: Negative for fever, chills, and weight loss, Cardiovascular: Negative kb for chest pain, palpitations Respiratory: Negative for shortness of breath, cough, wheezing, and pleuritic chest pain, Abdomen/GI: Negative for abdominal pain, nausea, vomiting, diarrhea, and constipation, Back: Negative for injury and pain, Skin: Negative for injury, rash, and discoloration, Neuro: Negative for headache, weakness, numbness, tingling, and seizure. 18:04 Cardiovascular: Positive for edema. Exam: 18:04 Constitutional: This is a well developed, well nourished patient who is awake, alert, kb and in no acute distress. Head/Face: Normocephalic, atraumatic. Chest/axilla: Normal chest wall appearance and motion. Nontender with no deformity. No lesions are appreciated. Respiratory: Lungs have equal breath sounds bilaterally, clear to auscultation and percussion. No rales, rhonchi or wheezes noted. No increased work of breathing, no retractions or nasal flaring. Abdomen/GI: Soft, non-tender, with normal bowel sounds. No distension or tympany. No guarding or rebound. No evidence of tenderness throughout. Skin: Warm, dry with normal turgor. Normal color with no rashes, no lesions, and no evidence of cellulitis. MS/ Extremity: Pulses equal, no cyanosis. Neurovascular intact. Full, normal range of motion. Neuro: Awake and alert, GCS 15, oriented to person, place, time, and situation. Cranial nerves II-XII grossly intact. Motor strength 5/5 in all extremities. Sensory grossly intact. Cerebellar exam normal. Normal gait. 18:04 Cardiovascular: Rate: normal, Edema: pedal edema, that is moderate. Vital Signs: 15:31 BP 140 / 97; Pulse 84; Resp 18; Temp 97.6; Pulse Ox 98% on R/A; Weight 90.72 kg; Height em 6 ft. 2 in. (187.96 cm); Pain 8/10; 18:35 BP 118 / 88; Pulse 64; Resp 16; Pulse Ox 98% on R/A; Pain 0/10; iw 15:31 Body Mass Index 25.68 (90.72 kg, 187.96 cm) em MDM: 16:56 Patient medically screened. kb 17:59 Data reviewed: vital signs, nurses notes. Data interpreted: Pulse oximetry: on room air kb is 98 %. Interpretation: normal. Counseling: I had a detailed discussion with the patient and/or guardian regarding: the historical points, exam findings, and any diagnostic results supporting the discharge/admit diagnosis, lab results, radiology results, the need for outpatient follow up, a family practitioner, to return to the emergency department if symptoms worsen or persist or if there are any questions or concerns that arise at home. 12/02 17:20 Order name: Basic Metabolic Panel; Complete Time: 17:59 kb 12/02 15:36 Order name: US Extremity Venous W Compression Kalia; Complete Time: 17:20 kb 12/02 15:36 Order name: Chest Single View XRAY; Complete Time: 17:20 kb 12/02 17:20 Order name: IV Start; Complete Time: 17:37 kb Administered Medications: 17:37 Drug: Lasix 40 mg Route: IVP; Site: right antecubital; iw Disposition: 12/03 13:30 Co-signature as Attending Physician, Bobby Sanchez MD I agree with the assessment and kdr plan of care. Disposition: 12/03/19 18:08 Discharged to Home. Impression: Edema, unspecified - bilateral lower extremity. - Condition is Stable. - Discharge Instructions: Heart Failure, [id number], Peripheral Edema. - Medication Reconciliation Form, Thank You Letter, Antibiotic Education, Prescription Opioid Use form. - Follow up: Emergency Department; When: As needed; Reason: Worsening of condition. Follow up: Private Physician; When: 2 - 3 days; Reason: Recheck today's complaints, Continuance of care, Re-evaluation by your physician. Signatures: Dispatcher [employer] EDMS Krystin Spencer, CAUSTIC ROOM ATTENDANT-C CAUSTIC ROOM ATTENDANT-Bobby Hussein MD MD [facility] Ramon Michelle, ANUJ RN Kaylin Mcleod RN RN iw Corrections: (The following items were deleted from the chart) 12/02 18:39 18:08 12/03/2019 18:08 Discharged to Home. Impression: Edema, unspecified - bilateral iw lower extremity. Condition is Stable. Forms are Medication Reconciliation Form, Thank You Letter, Antibiotic Education, Prescription Opioid Use. Follow up: Emergency Department; When: As needed; Reason: Worsening of condition. Follow up: Private Physician; When: 2 - 3 days; Reason: Recheck today's complaints, Continuance of care, Re-evaluation by your physician. kb
--- NOTE | 2019-12-03 18:08 | ER ---
Nurse's Notes [facility] Name: Noel Cobos Age: 69 yrs Sex: Male : 1950 Arrival Date: 12/03/2019 Time: 15:21 Bed 16 Private MD: Sher Balbuena E Diagnosis: Edema, unspecified-bilateral lower extremity Presentation: 12/02 15:31 Chief complaint: Patient states: sent over by clinic to R/O blood clot in ruel. legs, em has had pain since Sat., denies chest pain or SOB, reports swelling in ruel. legs. Coronavirus screen: Client denies travel out of the [place] in the last 14 days. Ebola Screen: Patient negative for fever greater than or equal to 101.5 degrees Fahrenheit, and additional compatible Ebola Virus Disease symptoms Patient denies exposure to infectious person. Patient denies travel to an Ebola-affected area in the 21 days before illness onset. No symptoms or risks identified at this time. Initial Sepsis Screen: Does the patient meet any 2 criteria? No. Patient's initial sepsis screen is negative. Does the patient have a suspected source of infection? No. Patient's initial sepsis screen is negative. Risk Assessment: Do you want to hurt yourself or someone else? Patient reports no desire to harm self or others. Onset of symptoms was November 27, 2019. 15:31 Method Of Arrival: Ambulatory em 15:31 Acuity: AUDREY 3 em Historical: - Allergies: 15:35 No Known Allergies; em - PMHx: 15:35 Atrial Fib; CHF; Diabetes - NIDDM; neuropathy; Hyperlipidemia; Sleep Apnea; em - PSHx: 15:35 Hernia repair; right foot sx; em - Immunization history:: Adult Immunizations up to date. - Social history:: Smoking status: Patient denies any tobacco usage or history of. Screenin:38 Abuse screen: Denies threats or abuse. Denies injuries from another. Nutritional iw screening: No deficits noted. Tuberculosis screening: No symptoms or risk factors identified. Fall Risk None identified. Assessment: 17:37 General: Appears in no apparent distress. Behavior is calm, cooperative. Pain: Denies iw pain. Neuro: Level of Consciousness is awake, alert, obeys commands, Oriented to person, place, time, situation. Cardiovascular: Patient's skin is warm and dry. Respiratory: Respiratory effort is even, unlabored, Respiratory pattern is regular, symmetrical. GI: Abdomen is non-distended. Derm: Skin is intact, is healthy with good turgor. Musculoskeletal: Range of motion: intact in all extremities. Vital Signs: 15:31 BP 140 / 97; Pulse 84; Resp 18; Temp 97.6; Pulse Ox 98% on R/A; Weight 90.72 kg; Height em 6 ft. 2 in. (187.96 cm); Pain 8/10; 18:35 BP 118 / 88; Pulse 64; Resp 16; Pulse Ox 98% on R/A; Pain 0/10; iw 15:31 Body Mass Index 25.68 (90.72 kg, 187.96 cm) em ED Course: 15:21 Patient arrived in ED. ag5 15:22 Sher Balbuena MD is Private Physician. ag5 15:34 Triage completed. em 15:35 Arm band placed on. em 16:21 Krystin Spencer FNP-C is [facility]. kb 16:21 Bobby Sanchez MD is Attending Physician. kb 17:05 US Extremity Venous W Compression Ruel In Process Unspecified. EDMS 17:08 Chest Single View XRAY In Process Unspecified. EDMS 17:18 Kaylin Milton, RN is Primary Nurse. iw 17:37 Patient has correct armband on for positive identification. iw 17:38 No provider procedures requiring assistance completed. Initial lab(s) drawn, by tn, iw sent to lab. Inserted saline lock: 22 gauge in right antecubital area, using aseptic technique. Blood collected. 18:39 IV discontinued, intact, bleeding controlled, No redness/swelling at site. Pressure iw dressing applied. Administered Medications: 17:37 Drug: Lasix 40 mg Route: IVP; Site: right antecubital; iw Outcome: 18:08 Discharge ordered by . kb 18:39 Patient left the ED. iw 18:39 Discharged to home ambulatory, with family. iw 18:39 Condition: good 18:39 Discharge instructions given to patient, family, Instructed on discharge instructions, follow up and referral plans. Demonstrated understanding of instructions, follow-up care. Signatures: Dispatcher [employer] EDNM Krystin Spencer FNP-C FNP-Ckb Munoz, Edgar, RN RN Kaylin Mcleod, RN RN iw Dex, Eda ag5
[2019-12-03 19:04] VITALS: TEMP 97.6; O2SAT 98
[2019-12-03 19:06] VITALS: BP 118/88
== END 2019-12-03 18:39 | disposition home or self-care (01) ==
LOC: ER 15:19
DX: R60.9 Edema, unspecified (principal)
CPT/HCPCS: 80048; 36415; 71045; 93970; 96374; 99284; J1940

== ENCOUNTER 2022-08-20 06:58 | Observation (INO) | payer OTHER ==
--- OUTSIDE RECORDS SUMMARY | 2022-08-20 07:02 | XMS REPORT | Continuity of Care Document ---
:1950 Author Organization [facility] t Address [address] [place] [address] [address] [place] [address] Care Team Providers Name Role Phone EFRAIN BALBUENA Primary Care Physician Unavailable Efrain Balbuena Attending Clinician Unavailable GONZALEZ HERNANDEZ Attending Clinician Unavailable GONZALEZ HERNANDEZ Attending Clinician Unavailable BOBBY BROWN Attending Clinician Unavailable Bobby Brown MD Attending Clinician Gonzalez Hernandez MD Attending Clinician Liya Restrepo Attending Clinician Lab, Ang - Db Attending Clinician Unavailable Doctor Unassigned, Nord Attending Clinician Unavailable BEA ELENA Attending Clinician Unavailable Bea Elena DO Attending Clinician Raghav Haro DO Attending Clinician MARY ELLEN TORRES Attending Clinician Unavailable Mary Ellen Torres MD Attending Clinician Rm, Lilian Surg Spec Procedure Attending Clinician Unavailable Ken Cavazos MD Attending Clinician Payers Payer Name Policy Type Policy Number Effective Date Expiration Date Prisca anita [employer] [id number] 2017 [employer] 00:00:00 Problems Condition Condition Condition Status Onset Resolution Last Treating Co mments Source Name Details Category Date Date Treatment Clinician Date Numbness Numbness Disease Active 2016-02 Unive rs in feet in feet 2-12 ity of 00:00: [place] [address] Medical Branch Type 2 Type 2 Disease Active 2016-02 Univers diabetes diabetes 2-12 ity of mellitus mellitus 00:00: [place] without without 00 Medical complicati complicati Br anch on, on, without without long-term long-term current current use of use of insulin insulin Dyslipidem Dyslipidem Disease Active 2016-02 U nivers ia ia 2-12 ity of 00:00: [place] [address] Medical Branch Essential Essential Disease Active 2016-02 Uni vers hypertensi hypertensi 2-12 it y of on on 00:00: [address] Allergies, Adverse Reactions, Alerts Allergy Allergy Status Severity Reaction(s) Onset Inactive Treating Comm ents Source Name Type Date Date Clinician No Known DA Active [facility] Allergie 09-11 [facility] 00:00: [address] NO KNOWN Drug Active [facility] ALLERGIE Class ity of [facility] Social History Social Habit Start Date Stop Date Quantity Comments Source Exposure to 2022-02-05 2022-02-[address] [facility] SARS-CoV-2 00:00:00 13:18:00 [facility] (event) [place] Alcohol intake 2021-08-10 2021-08-10 [facility] 00:00:00 00:00:00 non-drinker of [facility] alcohol (finding) [place] Tobacco use and 2019-10-22 2019-10-22 Smokeless tobacco Un iversity of exposure 00:00:00 00:00:00 non-user [facility] Sex Ass[birth year] At [birth year] Universit y of 00:00:00 00:00:00 [facility] Smoking Status Start Date Stop Date Source Never smoked tobacco [facility] Medications Ordered Filled Start Stop Current Ordering Indication Dosage Frequency Signature Comments Components Source Medication Medication Date Date Medication? Clinician (SIG) Name Name Insulin 2021-02 Yes [id number] 25U inject 25 Univers Detemir 2-30 Units ity of ([place] skin in Medical U-100 the Branch INSULN) 100 morning unit/mL (3 and 25 mL) Units in injection the evening. inject with meals. blood sugar 2021-02 Yes [id number] Use to Univers diagnostic 2-30 check ity of (ONETOUCH 00:00: blood [place] VERIO TEST 00 sugar 3X Medic al STRIPS) daily. Branch strip DX:E11.9 lancets 2021-02 Yes [id number] Use 3 Univ ers (ONE TOUCH 2-30 times ity of DELICA) 33 00:00: [place]. [place] gauge Misc 00 E11.9 Medical Branch metformin 2021-02 Yes [id number] 750mg Take 1 Univers ER 750 mg 2-30 tablet by ity o f 24 hr 00:00: mouth in [place] tablet the Medical morning Branch and 1 tablet in the evening. Insulin 2021-02 Yes [id number] 25U inject 25 [facility] Detemir 2-30 Units ity of ([place] skin [place] [facility] the Branch INSULN) 100 morning unit/mL (3 and 25 mL) Units in injection the evening. inject with meals. blood sugar 2021-02 Yes [id number] Use to Univers diagnostic 2-30 check ity of (ONETOUCH 00:00: blood [place] VERIO TEST 00 sugar 3X Medic al STRIPS) daily. Branch strip DX:E11.9 lancets 2021-02 Yes [id number] Use 3 Univ ers (ONE TOUCH 2-30 times ity of DELICA) 33 00:00: [place]. [place] gauge Misc 00 E11.9 Medical Branch metformin 2021-02 Yes [id number] 750mg Take 1 Univers ER 750 mg 2-30 tablet by ity o f 24 hr 00:00: mouth in [place] tablet the Medical morning Branch and 1 tablet in the evening. Insulin 2021-02 Yes [id number] 25U inject 25 Univers Detemir 2-30 Units ity of ([place]LE[place] 00 skin in Medical U-100 the Branch INSULN) 100 morning unit/mL (3 and 25 mL) Units in injection the evening. inject with meals. blood sugar 2021-02 Yes [id number] Use to Univers diagnostic 2-30 check ity of (ONETOUCH 00:00: blood [place] VERIO TEST 00 sugar 3X Medic al STRIPS) daily. Branch strip DX:E11.9 lancets 2021-02 Yes [id number] Use 3 Univ ers (ONE TOUCH 2-30 times ity of DELICA) 33 00:00: daily. [place] gauge Misc 00 E11.9 Medical Branch metformin 2021-02 Yes [id number] 750mg Take 1 Univers ER 750 mg 2-30 tablet by ity o f 24 hr 00:00: mouth in [place] tablet 00 the Medical morning Branch and 1 tablet in the evening. Insulin 2021-02 Yes [id number] 25U inject 25 Univers Detemir 2-30 Units ity of ([place]: [place]LE[place] skin [place] [facility] U-100 the Branch INSULN) 100 morning unit/mL (3 and 25 mL) Units in injection the evening. inject with meals. blood sugar 2021-02 Yes [id number] Use to Univers diagnostic 2-30 check ity of (ONETOUCH 00:00: blood [place] VERIO TEST 00 sugar 3X Medic al STRIPS) daily. Branch strip DX:E11.9 lancets 2021-02 Yes [id number] Use 3 Univ ers (ONE TOUCH 2-30 times ity of DELICA) 33 00:00: daily. [place] gauge Misc 00 E11.9 Medical Branch metformin 2021-02 Yes [id number] 750mg Take 1 Univers ER 750 mg 2-30 tablet by ity o f 24 hr 00:00: mouth in [place] tablet the Medical morning Branch and 1 tablet in the evening. gabapentin 2021-02 Yes [id number] 300mg Take 1 Univers 300 mg 1-28 capsule by ity of capsule 00:00: mouth in [place] the Medical morning Branch and 1 capsule in the evening. gabapentin 2021-02 Yes [id number] 300mg Take 1 Univers 300 mg 1-28 capsule by ity of capsule 00:00: mouth in [place] the Medical morning Branch and 1 capsule in the evening. gabapentin 2021-02 Yes [id number] 300mg Take 1 Univers 300 mg 1-28 capsule by ity of capsule 00:00: mouth in [place] [address] the [facility] morning Branch and 1 capsule in the evening. gabapentin 2021-02 Yes [id number] 300mg Take 1 Univers 300 mg 1-28 capsule by ity of capsule 00:00: mouth in [place] [address] the [facility] morning Branch and 1 capsule in the evening. gabapentin 2021-02 Yes [id number] 300mg Take 1 Univers 300 mg 1-28 capsule by ity of capsule 00:00: mouth in [place] 00 the Medical morning Branch and 1 capsule in the evening. gabapentin 2021-02 Yes [id number] 300mg Take 1 Univers 300 mg 1-18 capsule by ity of capsule 00:00: mouth in [place] 00 the Medical morning Branch and 1 capsule in the evening. gabapentin 2021-02 Yes [id number] 300mg Take 1 Univers 300 mg 1-18 capsule by ity of capsule 00:00: mouth in [place] [address] the Medical morning Branch and 1 capsule in the evening. gabapentin 2021-02 202- No [id number] 300mg Take 1 Univers 300 mg 1-18 11-28 capsule by ity of capsule 00:00: 00:00 mouth in [place] 00 :00 the Medical morning Branch and 1 capsule in the evening. Insulin Yes [id number] 25U inject 25 Univers Detemir 7-05 Units ity of (LEVEMIR 00:00: under the [employer] FLEXTOUCH 00 skin 2 Medical U-100 (two) Branch INSULN) 100 times unit/mL (3 daily with mL) meals. injection Insulin Yes [id number] 25U inject 25 Univers Detemir 7-05 Units ity of (LEVEMIR 00:00: under the [place] FLEXT[place] 00 skin 2 Medical U-100 (two) Branch INSULN) 100 times unit/mL (3 daily with mL) meals. injection Insulin Yes [id number] 25U inject 25 Univers Detemir 7-05 Units ity of (LEVEMIR 00:00: under the [place] FLEXTOUCH 00 skin 2 Medical U-100 (two) Branch INSULN) 100 times unit/mL (3 daily with mL) meals. injection Insulin Yes [id number] 25U inject 25 Univers Detemir 7-05 Units ity of (LEVEMIR 00:00: under the [place] FLEXTOUCH 00 skin 2 Medical U-100 (two) Branch INSULN) 100 times unit/mL (3 daily with mL) meals. injection Insulin Yes [id number] 25U inject 25 Univers Detemir 7-05 Units ity of ([place] 00:00: [place]LE[place] 00 skin 2 Medical U-100 (two) Branch INSULN) 100 times unit/mL (3 daily with mL) meals. injection Insulin 2021- No [id number] 25U inject 25 Univers Detemir 7-05 12-30 Units ity of (LEVEMIR 00:00: 00:00 under the [place] FLEXTOUCH 00 :00 skin 2 Medical U-100 (two) Branch INSULN) 100 times unit/mL (3 daily with mL) meals. injection Insulin 2021- No [id number] 25U inject 25 Univers Detemir 7-05 12-30 Units ity of (LEVEMIR 00:00: 00:00 under the [place] FLEXTOUCH 00 :00 skin 2 Medical U-100 (two) Branch INSULN) 100 times unit/mL (3 daily with mL) meals. injection amlodipine- 2021- No 1{capsu Take 1 Univers benazepril 6-24 06-24 le} capsule by it y of 5-20 mg per 15:01: 00:00 [place] capsule 02 :00 daily. Medical Branch magnesium 2021- No 400mg Take 400 Un na oxide 400 24 06-24 mg by ity of mg (241.3 15:00: 00:00 mouth [place] mg 28 :00 daily. Medical magnesium) Branch tablet gabapentin 2021- No Take by Uni vers enacarbil 6-24 06-24 mouth. ity of (HORIZANT) 14:59: 00:00 [place] 300 mg TbSR 42 :00 Medical Branch sacubitril- Yes 1{tbl} Take 1 Un na valsartan 6-24 tablet by ity o f (ENTRESTO) 14:53: mouth. [place] 49-51 mg 58 Medical tablet Branch rivaroxaban Yes 20mg Take 20 mg Univers (XARELTO) 6-24 by mouth. ity o f 20 mg 14:53: [place] tablet 58 Medical Branch sacubitril- Yes 1{tbl} Take 1 Un na valsartan 6-24 tablet by ity o f (ENTRESTO) 14:53: mouth. [place] 49-51 mg 58 Medical tablet Branch rivaroxaban 2021-0 Yes 20mg Take 20 mg Univers (XARELTO) 6-24 by mouth. ity o f 20 mg 14:53: [place] tablet 58 Medical Branch sacubitril- 2021-0 Yes 1{tbl} Take 1 Un na valsartan 6-24 tablet by ity o f (ENTRESTO) 14:53: mouth. [place] 49-51 mg 58 Medical tablet Branch rivaroxaban 2021-0 Yes 20mg Take 20 mg Univers (XARELTO) 6-24 by mouth. ity o f 20 mg 14:53: [place] tablet 58 Medical Branch sacubitril- 2021-0 Yes 1{tbl} Take 1 Un na valsartan 6-24 tablet by ity o f (ENTRESTO) 14:53: mouth. [place] 49-51 mg 58 Medical tablet Branch rivaroxaban 0 Yes 20mg Take 20 mg Univers (XARELTO) 6-24 by mouth. ity o f 20 mg 14:53: [place] tablet 58 Medical Branch sacubitril- 0 Yes 1{tbl} Take 1 Un na valsartan 6-24 tablet by ity o f (ENTRESTO) 14:53: mouth. [place] 49-51 mg 58 Medical tablet Branch rivaroxaban 0 Yes 20mg Take 20 mg Univers (XARELTO) 6-24 by mouth. ity o f 20 mg 14:53: [place] tablet 58 Medical Branch sacubitril- 2021-0 Yes 1{tbl} Take 1 Un na valsartan 6-24 tablet by ity o f (ENTRESTO) 14:53: mouth. [place] 49-51 mg 58 Medical tablet Branch rivaroxaban 0 Yes 20mg Take 20 mg Univers (XARELTO) 6-24 by mouth. ity o f 20 mg 14:53: [place] tablet 58 Medical Branch sacubitril- 2021-0 Yes 1{tbl} Take 1 Un na valsartan 6-24 tablet by ity o f (ENTRESTO) 14:53: mouth. [place] 49-51 mg 58 Medical tablet Branch rivaroxaban 2021-0 Yes 20mg Take 20 mg Univers (XARELTO) 6-24 by mouth. ity o f 20 mg 14:53: [place] tablet 58 Medical Branch sacubitril- 2021-0 Yes 1{tbl} Take 1 Un na valsartan 6-24 tablet by ity o f (ENTRESTO) 14:53: mouth. [place] 49-51 mg 58 Medical tablet Branch rivaroxaban 2021-0 Yes 20mg Take 20 mg Univers (XARELTO) 6-24 by mouth. ity o f 20 mg 14:53: [place] tablet 58 Medical Branch sacubitril- 2021-0 Yes 1{tbl} Take 1 Un na valsartan 6-24 tablet by ity o f (ENTRESTO) 14:53: mouth. [place] 49-51 mg 58 Medical tablet Branch rivaroxaban 0 Yes 20mg Take 20 mg Univers (XARELTO) 6-24 by mouth. ity o f 20 mg 14:53: [place] tablet 58 Medical Branch sacubitril- 2021-0 Yes 1{tbl} Take 1 Un na valsartan 6-24 tablet by ity o f (ENTRESTO) 14:53: mouth. [place] 49-51 mg 58 Medical tablet Branch rivaroxaban 0 Yes 20mg Take 20 mg Univers (XARELTO) 6-24 by mouth. ity o f 20 mg 14:53: [facility] 58 Medical Branch furosemide 2021-0 Yes 40mg Take 40 mg U nivers 40 mg 6-24 by mouth ity of tablet 14:53: daily. [address] furosemide 2021-0 Yes 40mg Take 40 mg U nivers 40 mg 6-24 by mouth ity of tablet 14:53: daily. [address] furosemide 2021-0 Yes 40mg Take 40 mg U nivers 40 mg 6-24 by mouth ity of tablet 14:53: daily. [address] furosemide 2021-0 Yes 40mg Take 40 mg U nivers 40 mg 6-24 by mouth ity of tablet 14:53: daily. [address] furosemide 2021-0 Yes 40mg Take 40 mg U nivers 40 mg 6-24 by mouth ity of tablet 14:53: daily. [address] furosemide 2021-0 Yes 40mg Take 40 mg U nivers 40 mg 6-24 by mouth ity of tablet 14:53: daily. [place] 57 Medical Branch furosemide 2022-0 Yes 40mg Take 40 mg U nivers 40 mg 6-24 by mouth ity of tablet 14:53: daily. [place] [address] Medical Branch furosemide 2022-0 Yes 40mg Take 40 mg U nivers 40 mg 6-24 by mouth ity of tablet 14:53: daily. [address] Branch furosemide 2022-0 Yes 40mg Take 40 mg U nivers 40 mg 6-24 by mouth ity of tablet 14:53: daily. [address] Branch furosemide 2022-0 Yes 40mg Take 40 mg U nivers 40 mg 6-24 by mouth ity of tablet 14:53: daily. [address] Branch GARLIC ORAL 2022-0 Yes Take by Uni vers 6-24 mouth. ity of 14:53: [place] [address] Medical Branch GARLIC ORAL 2022-0 Yes Take by Uni vers 6-24 mouth. ity of 14:53: [address] Branch GARLIC ORAL 2022-0 Yes Take by Uni vers 6-24 mouth. ity of 14:53: [address] Branch GARLIC ORAL 2022-0 Yes Take by Uni vers 6-24 mouth. ity of 14:53: [place] [address] Medical Branch GARLIC ORAL 2022-0 Yes Take by Uni vers 6-24 mouth. ity of 14:53: [address] Branch GARLIC ORAL 2022-0 Yes Take by Uni vers 6-24 mouth. ity of 14:53: [address] Branch GARLIC ORAL 2022-0 Yes Take by Uni vers 6-24 mouth. ity of 14:53: [address] Branch GARLIC ORAL 2022-0 Yes Take by Uni vers 6-24 mouth. ity of 14:53: [place] [address] Medical Branch GARLIC ORAL 2022-0 Yes Take by Uni vers 6-24 mouth. ity of 14:53: [address] Branch GARLIC ORAL 2022-0 Yes Take by Uni vers 6-24 mouth. ity of 14:53: [address] Branch atorvastati 2022-0 Yes 40mg Take 40 mg Univers n 40 mg 6-24 by mouth ity of tablet 14:53: at [place] [address] bedtime. Medical Branch atorvastati 2022-0 Yes 40mg Take 40 mg Univers n 40 mg 6-24 by mouth ity of tablet 14:53: at [place] [address] bedtime. Medical Branch atorvastati 2022-0 Yes 40mg Take 40 mg Univers n 40 mg 6-24 by mouth ity of tablet 14:53: at [place] [address] bedtime. Medical Branch atorvastati Yes 40mg Take 40 mg Univers n 40 mg 6-24 by mouth ity of tablet 14:53: at [place] [address] bedtime. Medical Branch atorvastati Yes 40mg Take 40 mg Univers n 40 mg 6-24 by mouth ity of tablet 14:53: at [place] [address] bedtime. Medical Branch atorvastati Yes 40mg Take 40 mg Univers n 40 mg 6-24 by mouth ity of tablet 14:53: at [place] [address] bedtime. Medical Branch atorvastati Yes 40mg Take 40 mg Univers n 40 mg 6-24 by mouth ity of tablet 14:53: at [place] [address] bedtime. Medical Branch atorvastati Yes 40mg Take 40 mg Univers n 40 mg 6-24 by mouth ity of tablet 14:53: at [place] [address] bedtime. Medical Branch atorvastati Yes 40mg Take 40 mg Univers n 40 mg 6-24 by mouth ity of tablet 14:53: at [place] [address] bedtime. Medical Branch atorvastati Yes 40mg Take 40 mg Univers n 40 mg 6-24 by mouth ity of tablet 14:53: at [place] [address] bedtime. Medical Branch Insulin Yes [id number] 25U inject 25 Univers Detemir 6-24 Units ity of (LEVEM[place] 00:00: [place] FLEXT[place] 00 skin 2 Medical U-100 (two) Branch INSULN) 100 times unit/mL (3 daily with mL) meals. injection blood sugar Yes [id number] Use to Univers diagnostic 6-24 check ity of (ONETOUCH 00:00: blood [place] VERIO TEST 00 sugar 3X Medic al STRIPS) daily. Branch strip DX:E11.9 lancets Yes [id number] Use 3 Univ ers (ONE TOUCH 6-24 times ity of DELICA) 33 00:00: daily. [place] gauge Misc 00 E11.9 Medical Branch blood sugar Yes [id number] Use to Univers diagnostic 6-24 check ity of (ONETOUCH 00:00: blood [place] VERIO TEST 00 sugar 3X Medic al STRIPS) daily. Branch strip DX:E11.9 lancets 2021-0 Yes [id number] Use 3 Univ ers (ONE TOUCH 6-24 times ity of DELICA) 33 00:00: daily. [place] gauge Misc 00 E11.9 Medical Branch blood sugar 2021-0 Yes [id number] Use to Univers diagnostic 6-24 check ity of (ONETOUCH 00:00: blood [place] VERIO TEST 00 sugar 3X Medic al STRIPS) daily. Branch strip DX:E11.9 lancets 2021-0 Yes [id number] Use 3 Univ ers (ONE TOUCH 6-24 times ity of DELICA) 33 00:00: daily. [place] gauge Misc 00 E11.9 Medical Branch blood sugar 2021-0 Yes [id number] Use to Univers diagnostic 6-24 check ity of (ONETOUCH 00:00: blood [place] VERIO TEST 00 sugar 3X Medic al STRIPS) daily. Branch strip DX:E11.9 lancets 2021-0 Yes [id number] Use 3 Univ ers (ONE TOUCH 6-24 times ity of DELICA) 33 00:00: daily. [place] gauge Misc 00 E11.9 Medical Branch blood sugar 2021-0 Yes [id number] Use to Univers diagnostic 6-24 check ity of (ONETOUCH 00:00: blood [place] VERIO TEST 00 sugar 3X Medic al STRIPS) daily. Branch strip DX:E11.9 lancets 2021-0 Yes [id number] Use 3 Univ ers (ONE TOUCH 6-24 times ity of DELICA) 33 00:00: daily. [place] gauge Misc 00 E11.9 Medical Branch blood sugar 2021-0 Yes [id number] Use to Univers diagnostic 6-24 check ity of (ONETOUCH 00:00: blood [place] VERIO TEST 00 sugar 3X Medic al STRIPS) daily. Branch strip DX:E11.9 lancets 2021-0 Yes [id number] Use 3 Univ ers (ONE TOUCH 6-24 times ity of DELICA) 33 00:00: daily. [place] gauge Misc 00 E11.9 Medical Branch blood sugar 2-0 2022- No [id number] Use to Univers diagnostic 6-24 12-30 check ity of (ONETOUCH 00:00: 00:00 blood [place] VERIO TEST 00 :00 sugar 3X Medic al STRIPS) daily. Branch strip DX:E11.9 lancets 2021- No [id number] Use 3 Uni vers (ONE TOUCH 6-24 12-30 times ity of DELICA) 33 00:00: 00:00 daily. [place] gauge Misc 00 :00 E11.9 Medical Branch blood sugar 2021- No [id number] Use to Univers diagnostic 6 12-30 check ity of (ONETOUCH 00:00: 00:00 blood [place] VERIO TEST 00 :00 sugar 3X Medic al STRIPS) daily. Branch strip DX:E11.9 lancets 2021- No [id number] Use 3 Uni vers (ONE TOUCH 6-24 12-30 times ity of DELICA) 33 00:00: 00:00 daily. [place] gauge Misc 00 :00 E11.9 Medical Branch Insulin 2021- No [id number] 25U inject 25 Univers Detemir 6-24 07-05 Units ity of (LEVEMIR 00:00: 00:00 under the [place] FLEXTOUCH 00 :00 skin 2 Medical U-100 (two) Branch INSULN) 100 times unit/mL (3 daily with mL) meals. injection sildenafiL Yes TAKE 1 Unive rs 100 mg 5-24 TABLET BY ity of tablet 00:00: MOUTH [place] 00 EVERY DAY Medical NEEDED Branch sildenafiL Yes TAKE 1 Unive rs 100 mg 5-24 TABLET BY ity of tablet 00:00: MOUTH [place] 00 EVERY DAY Medical NEEDED Branch sildenafiL Yes TAKE 1 Unive rs 100 mg 5-24 TABLET BY ity of tablet 00:00: MOUTH [place] 00 EVERY DAY Medical NEEDED Branch sildenafiL Yes TAKE 1 Unive rs 100 mg 5-24 TABLET BY ity of tablet 00:00: MOUTH [place] 00 EVERY DAY Medical NEEDED Branch sildenafiL Yes TAKE 1 Unive rs 100 mg 5-24 TABLET BY ity of tablet 00:00: MOUTH [place] 00 EVERY DAY Medical NEEDED Branch sildenafiL Yes TAKE 1 Unive rs 100 mg 5-24 TABLET BY ity of tablet 00:00: MOUTH [place] 00 EVERY DAY Medical NEEDED Branch sildenafiL 2022-0 Yes TAKE 1 Unive rs 100 mg 5-24 TABLET BY ity of tablet 00:00: MOUTH 00 EVERY DAY Medical NEEDED Branch sildenafiL 2021-0 Yes TAKE 1 Unive rs 100 mg 5-24 TABLET BY ity of tablet 00:00: MOUTH [place] 00 EVERY DAY Medical NEEDED Branch sildenafiL 2021-0 Yes TAKE 1 Unive rs 100 mg 5-24 TABLET BY ity of tablet 00:00: MOUTH 00 EVERY DAY Medical NEEDED Branch sildenafiL 2021-0 Yes TAKE 1 Unive rs 100 mg 5-24 TABLET BY ity of tablet 00:00: MOUTH 00 EVERY DAY Medical NEEDED Branch BD 2021-0 Yes USE 1 Univers ULTRAFINE 4-22 NEEDLE ity of III MINI 00:00: SUBCUTANEO [place] PEN 31 00 USLY EVERY Medical gauge x 12 HOURS Branch 3/16" Ndle DIRECTED BD 2021-0 Yes USE 1 Univers ULTRAFINE 4-22 NEEDLE ity of III MINI 00:00: SUBCUTANEO [place] PEN 31 00 USLY EVERY Medical gauge x 12 HOURS Branch 3/16" [place] DIRECTED BD 202-0 Yes USE 1 Univers ULTRAFINE 4-22 NEEDLE ity of III MINI 00:00: SUBCUTANEO [place] PEN 31 00 USLY EVERY Medical gauge x 12 HOURS Branch 3/16" N[place] DIRECTED BD 2021-0 Yes USE 1 Univers ULTRAFINE 4-22 NEEDLE ity of III MINI 00:00: SUBCUTANEO [place] PEN 31 00 USLY EVERY Medical gauge x 12 HOURS Branch 3/16" Ndle DIRECTED BD 2022-0 Yes USE 1 Univers ULTRAFINE 4-22 NEEDLE ity of III MINI 00:00: SUBCUTANEO [place] PEN 31 00 USLY EVERY Medical gauge x 12 HOURS Branch 3/16" Ndle DIRECTED BD 2022-0 Yes USE 1 Univers ULTRAFINE 4-22 NEEDLE ity of III MINI 00:00: SUBCUTANEO [place] PEN 31 00 USLY EVERY Medical gauge x 12 HOURS Branch 3/16" Ndle DIRECTED BD 2022-0 Yes USE 1 Univers ULTRAFINE 4-22 NEEDLE ity of III MINI 00:00: SUBCUTANEO [place] PEN 31 00 USLY EVERY Medical gauge x 12 HOURS Branch 3/16" Ndle DIRECTED BD 2022-0 Yes USE 1 Univers ULTRAFINE 4-22 NEEDLE ity of III MINI 00:00: SUBCUTANEO [place] PEN 31 00 USLY EVERY Medical gauge x 12 HOURS Branch 3/16" Ndle DIRECTED BD 2021-0 Yes USE 1 Univers ULTRAFINE 4-22 NEEDLE ity of III MINI 00:00: SUBCUTANEO [place] PEN 31 00 USLY EVERY Medical gauge x 12 HOURS Branch 3/16" Ndle DIRECTED BD 2021-0 Yes USE 1 Univers ULTRAFINE 4-22 NEEDLE ity of III MINI 00:00: SUBCUTANEO [place] PEN 31 00 USLY EVERY Medical gauge x 12 HOURS Branch 316" Ndle DIRECTED carvediloL 2022-0 Yes 12.5mg Take 12.5 Univers 12.5 mg 4-02 mg by ity of tablet 00:00: mouth 2 [place] (two) Medical times Branch daily. carvediloL 2022-0 Yes 12.5mg Take 12.5 Univers 12.5 mg 4-02 mg by ity of tablet 00:00: mouth [place] (two) Medical times Branch daily. carvediloL 2022-0 Yes 12.5mg Take 12.5 Univers 12.5 mg 4-02 mg by ity of tablet 00:00: mouth [place] (two) Medical times Branch daily. carvediloL 2022-0 Yes 12.5mg Take 12.5 Univers 12.5 mg 4-02 mg by ity of tablet 00:00: mouth 2 [place] (two) Medical times Branch daily. carvediloL 2022-0 Yes 12.5mg Take 12.5 Univers 12.5 mg 4-02 mg by ity of tablet 00:00: mouth 2 [place] (two) Medical times Branch daily. carvediloL 2022-0 Yes 12.5mg Take 12.5 Univers 12.5 mg 4-02 mg by ity of tablet 00:00: mouth 2 [place] (two) Medical times Branch daily. carvediloL 2022-0 Yes 12.5mg Take 12.5 Univers 12.5 mg 4-02 mg by ity of tablet 00:00: mouth 2 [place] (two) Medical times Branch daily. carvediloL 2022-0 Yes 12.5mg Take 12.5 Univers 12.5 mg 4-02 mg by ity of tablet 00:00: mouth 2 [place] 00 (two) Medical times Branch daily. carvediloL Yes 12.5mg Take 12.5 Univers 12.5 mg 4-02 mg by ity of tablet 00:00: mouth 2 [place] 00 (two) Medical times Branch daily. carvediloL 0 Yes 12.5mg Take 12.5 Univers 12.5 mg 4-02 mg by ity of tablet 00:00: mouth 2 [place] 00 (two) Medical times Branch daily. bromphenira 2021- No [id number] 5mL Take 5 mL Univers mine-pseudo 3-08-10 by mouth 4 i ty of ephedrine-D 00:00: 00:00 (four) [place] M (BROMFED 00 :00 times Medical DM) 2-30-10 daily as Bran ch mg/5 mL needed for syrup Cold symptoms. benzonatate 2021- No [id number] 100mg Take 1 Univers 100 mg 05-06 capsule by ity of capsule 00:00: 00:00 mouth 3 [place] 00 :00 (three) Medical times Branch daily as needed for Cough. metformin 2020-0 Yes [id number] 750mg Take 1 Univers ER 750 mg 3-05 tablet by ity o f 24 hr 00:00: mouth 2 [place] tablet 00 (two) Medical times Branch daily. metformin 2020-0 Yes [id number] 750mg Take 1 Univers ER 750 mg 3-05 tablet by ity o f 24 hr 00:00: mouth 2 [place] tablet 00 (two) Medical times Branch daily. metformin 2020-0 Yes [id number] 750mg Take 1 Univers ER 750 mg 3-05 tablet by ity o f 24 hr 00:00: mouth 2 [place] tablet 00 (two) Medical times Branch daily. metformin 2020-0 Yes [id number] 750mg Take 1 Univers ER 750 mg 3-05 tablet by ity o f 24 hr 00:00: mouth 2 [place] tablet 00 (two) Medical times Branch daily. metformin 2020-0 Yes [id number] 750mg Take 1 Univers ER 750 mg 3-05 tablet by ity o f 24 hr 00:00: mouth 2 [place] tablet 00 (two) Medical times Branch daily. metformin 2020-0 Yes [id number] 750mg Take 1 Univers ER 750 mg 3-05 tablet by ity o f 24 hr 00:00: mouth 2 [place] tablet 00 (two) Medical times Branch daily. metformin 2021- No [id number] 750mg Take 1 Univers ER 750 mg 3-05 12-30 tablet by ity of 24 hr 00:00: 00:00 mouth 2 [place] tablet 00 :00 (two) Medical times Branch daily. metformin 2021- No [id number] 750mg Take 1 Univers ER 750 mg 3-05 12-30 tablet by ity of 24 hr 00:00: 00:00 mouth 2 [place] tablet 00 :00 (two) Medical times Branch daily. gabapentin 2019-02 Yes [id number] 300mg Take 1 Univers 300 mg 1-12 capsule by ity of capsule 00:00: mouth 2 [place] 00 (two) Medical times Branch daily. gabapentin 2019-02 Yes [id number] 300mg Take 1 Univers 300 mg 1-12 capsule by ity of capsule 00:00: mouth 2 [place] 00 (two) Medical times Branch daily. gabapentin 2019-02 Yes [id number] 300mg Take 1 Univers 300 mg 1-12 capsule by ity of capsule 00:00: mouth 2 [place] 00 (two) Medical times Branch daily. gabapentin 2019-02- No [id number] 300mg Take 1 Univers 300 mg 1-12 11-18 capsule by ity of capsule 00:00: 00:00 mouth 2 [place] 00 :00 (two) Medical times Branch daily. gabapentin 2019-02- No [id number] 300mg Take 1 Univers 300 mg 1-12 11-18 capsule by ity of capsule 00:00: 00:00 mouth 2 [place] 00 :00 (two) Medical times Branch daily. ONETOUCH 2021- No [id number] Use to U nivers VERIO strip -10 08-10 check ity of 00:00: 00:00 blood [place] 00 :00 sugar 3X Medical daily. Branch DX:E11.9 Blood-Gluco 2016-02 Yes [id number] Use as Univers se Meter 2-12 directed, ity of (BLOOD 00:00: TID, [place] GLUCOSE 00 DX:E11.9 Medical MONITORING) Branch Kit Blood-Gluco 2016-02 Yes [id number] Use as Univers se Meter 2-12 directed, ity of (BLOOD 00:00: TID, [place] GLUCOSE 00 DX:E11.9 Medical MONITORING) [facility] Blood-Gluco 2016-02 Yes [id number] Use as Univers se Meter 2-12 directed, ity of (BLOOD 00:00: TID, [place] GLUCOSE 00 DX:E11.9 Medical MONITORING) [facility] Blood-Gluco 2016-02 Yes [id number] Use as Univers se Meter 2-12 directed, ity of (BLOOD 00:00: TID, [place] GLUCOSE 00 DX:E11.9 Medical MONITORING) [facility] Blood-Gluco 2016-02 Yes [id number] Use as Univers se Meter 2-12 directed, ity of (BLOOD 00:00: TID, [place] GLUCOSE 00 DX:E11.9 Medical MONITORING) [facility] Blood-Gluco 2016-02 Yes [id number] Use as Univers se Meter 2-12 directed, ity of (BLOOD 00:00: TID, [place] GLUCOSE 00 DX:E11.9 Medical MONITORING) [facility] Blood-Gluco 2016-02 Yes [id number] Use as Univers se Meter 2-12 directed, ity of (BLOOD 00:00: TID, [place] GLUCOSE 00 DX:E11.9 Medical MONITORING) [facility] Blood-Gluco 2016-02 Yes [id number] Use as Univers se Meter 2-12 directed, ity of (BLOOD 00:00: TID, [place] GLUCOSE 00 DX:E11.9 Medical MONITORING) [facility] Blood-Gluco 2016-02 Yes [id number] Use as Univers se Meter 2-12 directed, ity of (BLOOD 00:00: TID, [place] GLUCOSE 00 DX:E11.9 Medical MONITORING) [facility] Blood-Gluco 2016-02 Yes [id number] Use as Univers se Meter 2-12 directed, ity of (BLOOD 00:00: TID, [place] GLUCOSE 00 DX:E11.9 Medical MONITORING) [facility] aspirin 81 Yes 81mg Take 1 Unive rs mg chewable 9-15 tablet by ity of tablet 00:00: mouth [place] 00 daily. Medical Branch multivitami Yes 1{tbl} Take 1 Un na n tablet 9-15 tablet by ity of 00:00: mouth [place] 00 daily. Medical Branch aspirin 81 Yes 81mg Take 1 Unive rs mg chewable 9-15 tablet by ity of tablet 00:00: mouth [place] 00 daily. Medical Branch multivitami 2017 Yes 1{tbl} Take 1 Un na n tablet 9-15 tablet by ity of 00:00: mouth [place] 00 daily. Medical Branch aspirin 81 0 Yes 81mg Take 1 Unive rs mg chewable 9-15 tablet by ity of tablet 00:00: mouth [place] 00 daily. Medical Branch multivitami [id number] Yes 1{tbl} Take 1 Un na n tablet 9-15 tablet by ity of 00:00: mouth [place] 00 daily. Medical Branch aspirin 81 0 Yes 81mg Take 1 Unive rs mg chewable 9-15 tablet by ity of tablet 00:00: mouth [place] 00 daily. Medical Branch multivitami 2017 Yes 1{tbl} Take 1 Un na n tablet 9-15 tablet by ity of 00:00: mouth [place] 00 daily. Medical Branch aspirin 81 0 Yes 81mg Take 1 Unive rs mg chewable 9-15 tablet by ity of tablet 00:00: mouth [place] 00 daily. Medical Branch multivitami 2017 Yes 1{tbl} Take 1 Un na n tablet 9-15 tablet by ity of 00:00: mouth [place] 00 daily. Medical Branch aspirin 81 0 Yes 81mg Take 1 Unive rs mg chewable 9-15 tablet by ity of tablet 00:00: mouth [place] 00 daily. Medical Branch multivitami 20170 Yes 1{tbl} Take 1 Un na n tablet 9-15 tablet by ity of 00:00: mouth [place] 00 daily. Medical Branch aspirin 81 2017-0 Yes 81mg Take 1 Unive rs mg chewable 9-15 tablet by ity of tablet 00:00: mouth [place] 00 daily. Medical Branch multivitami 20170 Yes 1{tbl} Take 1 Un na n tablet 9-15 tablet by ity of 00:00: mouth [place] 00 daily. Medical Branch aspirin 81 2017-0 Yes 81mg Take 1 Unive rs mg chewable 9-15 tablet by ity of tablet 00:00: mouth [place] 00 daily. Medical Branch multivitami 20170 Yes 1{tbl} Take 1 Un na n tablet 9-15 tablet by ity of 00:00: mouth [place] 00 daily. Medical Branch aspirin 81 2017-0 Yes 81mg Take 1 Unive rs mg chewable 9-15 tablet by ity of tablet 00:00: mouth [place] 00 daily. Medical Branch multivitami Yes 1{tbl} Take 1 Un na n tablet 9-15 tablet by ity of 00:00: mouth [place] 00 daily. Medical Branch aspirin 81 Yes 81mg Take 1 Unive rs mg chewable 9-15 tablet by ity of tablet 00:00: mouth [place] 00 daily. Medical Branch multivitami Yes 1{tbl} Take 1 Un na n tablet 9-15 tablet by ity of 00:00: mouth [place] 00 daily. Medical Branch [place]-3 2021- No 2{tbl} Take 2 Unive rs Fatty Acids 9-15 06-24 tablets by i ty of (FISH OIL) 00:00: 00:00 mouth [place] 500 mg Cap 00 :00 daily. Medical Branch Vital Signs Vital Name Observation Time Observation Value Comments Source Systolic blood 2022-02-15 19:21:00 123 mm[Hg] Univer [facility] [place] Diastolic blood 2022-02-15 19:21:00 82 mm[Hg] Unive [facility] Heart rate 2022-02-15 19:21:00 76 /min [facility] Body height 2022-02-15 19:21:00 188 cm [facility] Body weight 2022-02-15 19:21:00 92.398 kg [facility] BMI 2022-02-15 19:21:00 26.15 kg/m2 [facility] Oxygen saturation 2022-02-15 19:21:00 100 /min [facility] in Arterial blood [facility] anch by Pulse oximetry Systolic blood 2021-08-10 19:38:00 124 mm[Hg] [facility] pressure [facility] Diastolic blood 2021-08-10 19:38:00 78 mm[Hg] Unive [facility] Body height 2021-08-10 19:38:00 188 cm [facility] Body weight 2021-08-10 19:38:00 95.255 kg [facility] BMI 2021-08-10 19:38:00 26.96 kg/m2 [facility] Procedures Procedure Date / Time Performed Performing Clinician Dylan lorenzo POCT HEMOGLOBIN A1C 2022-02-15 19:29:00 Bobby Brown [facility] POCT HEMOGLOBIN A1C 2021-08-10 19:40:00 Liya Zavala [facility] Encounters Start End Encounter Admission Attending Care Care Encounter Source Date/Time Date/Time Type Type Clinicians Facility Department ID 2022-04-05 Outpatient Balbuena, STLMLC STLC [id number] Common 08:56:02 [place] [id number] [facility] 2022-12-20 2022-12-20 Outpatient GONZALEZ GAITAN [facility] [id number] Univers 10:40:00 10:40:00 GONZALEZ HERNANDEZ [facility] 2022-08-16 2022-08-16 [facility] [id number] Univers 10:00:00 10:00:00 BOBBY ricarda [facility] 2022-05-31 2022-05-31 [facility] [id number] Univers 00:00:00 00:00:00 Bobby NodePrime 350.1.13.10 it y of [place] 4.2.7.2.686 Yamil as HOLLIE?BLEA [id number] [address] OFFICE [facility] 2022-04-28 2022-04-28 [facility] [id number] Univers 00:00:00 00:00:00 Bobby NodePrime 350.1.13.10 it y of [place] 4.2.7.2.686 Yamil as HOLLIE?BLEA [phone] [address] MEDICAL OFFICE [facility] 2022-02-15 2022-02-15 Outpatient R [facility] [id number] Univers 13:30:00 14:16:37 BOBBY ricarda [facility] 2022-02-15 2022-02-15 Office [facility] [id number] Univers 13:30:00 14:16:37 Visit [facility] 350.1.13.10 it y of [place] 4.2.7.2.686 Yamil as HOLLIE?BLEA [phone] Hi anish HUGHES [address] [facility] OFFICE [facility] 2022-01-14 2022-01-14 Telephone David [facility] [id number] Univers 00:00:00 00:00:00 [facility] 350.1.13.10 ity of [place] 4.2.7.2.686 Yamil as HOLLIE?BLEA [id number] Hi anish [address] OFFICE [facility] 2022-01-04 2022-01-04 Outpatient R GONZALEZ HERNANDEZ [facility] [id number] Univers 10:40:00 11:18:53 GONZALEZ HERNANDEZ [facility] 2022-01-04 2022-01-04 Office [facility] 1.2.840.114 [id number] [facility] 10:40:00 11:18:53 Visit [facility] 350.1.13.10 ity of [place] 4.2.7.2.686 Yamil as HOLLIE?BLEA [id number] Hi anish [address] OFFICE [facility] 2022-01-04 2022-01-04 Outpatient R GONZALEZ HERNANDEZ [facility] [id number] Univers 08:20:00 08:20:00 GONZALEZ HERNANDEZ [facility] 2021-12-17 2021-12-17 Telephone [facility] [id number] Univers 00:00:00 00:00:00 [facility] 350.1.13.10 ity of [place] 4.2.7.2.686 Yamil as HOLLIE?BLEA [phone] Hi niru[address] OFFICE [facility] 2021-12-07 2021-12-07 Outpatient R STEPHANIE [facility] [id number] Univers 12:00:00 12:00:00 BOBBY navarrete [facility] 2021-08-21 2021-08-21 Telephone [facility] [id number] Univers 00:00:00 00:00:00 Liya MULTISPEC 350.1.13.10 ity of [place] 4.2.7.2.686 [place] [facility] [id number] [facility] AND NED [address] [facility] 2021-08-10 2021-08-10 [facility], Ang - Db [facility] 1.2.840.1 [id number] Univers 15:30:00 15:45:00 Visit Liya Zavala [facility] 350.1.13.10 [facility] 4.2.7.2.686 Yamil as HOLLIE?BLEA [id number] [facility] [address] MEDICAL OFFICE BUILDING 2021-08-10 2021-08-10 Outpatient R STEPHANIE [facility] [id number] Univers 14:30:00 15:18:56 BOBBY itricarda [facility] 2021-08-10 2021-08-10 [facility] 1.2.840.114 [id number] Univers 14:30:00 15:18:56 Visit Bobby Brown [facility] 350.1.13.10 ity of [place] 4.2.7.2.686 Yamil as HOLLIE?BLEA [phone] [facility] [address] MEDICAL OFFICE BUILDING 2021-08-10 2021-08-10 Orders Doctor HUSSAIN 1.2.840.114 [id number] Univers 00:00:00 00:00:00 Only Unassigned, ANA CRISTINA 350.1.13.10 ity of [place] [facility] 4.2.7.2.686 Yamil as [id number] [facility] 009 Branch 2021-05-06 2021-05-06 Emergency X KASSY [facility] ERT [id number] Univers 09:07:00 09:50:00 BEA navarrete [facility] 2021-05-06 2021-05-06 Emergency [facility] 1.2.840.114 [id number] Univers 09:07:00 09:50:00 Bea CASTELLANOS 350.1.13.10 ity of [place] 4.2.7.2.686 [facility] [id number] [facility] 084 Branch 2021-05-06 2021-05-06 Orders Doctor HUSSAIN 1.2.840.114 [id number] Univers 00:00:00 00:00:00 Only Unassigned, ANA CRISTINA 350.1.13.10 [facility] 4.2.7.2.686 Yamil as [phone] [address] 2021-04-26 2021-04-26 Refill [facility] 1.2.614.291 [id number] Univers 00:00:00 00:00:00 Bobby CASTELLANOS 350.1.13.10 i ty of [place]2.7.2.[place] [phone] Hi dical NAL 220 [facility] 2020-10-02 2020-10-02 [facility] 1.2.840.114 [id number] Univers 00:00:00 00:00:00 Gonzalez Castellanos 350.1.13.10 [place] of [place].2.[place] [phone] Hi dicms nal 092 [facility] 2020-08-25 2020-08-25 Outpatient R [facility] [id number] Univers 09:30:00 09:30:00 BOBBY navarrete [facility] 2020-04-24 2020-04-24 Patient [facility] 1.2.840.114 [id number] Univers 00:00:00 00:00:00 Outreach Raghav PRIMARY 350.1.13.10 i ty of [facility] 4[place]2.7.2.686 [place] [id number] Hi dical [address] 2020-04-21 2020-04-21 Office [facility] [id number] Univers 08:47:30 10:17:34 Visit Bobby Castellanos 350.1.13.10 i [place] of [place] 4[place]2.7.2.[place] [phone] Hi dical nal 220 [facility] 2020-04-21 2020-04-21 Outpatient R [facility] [id number] Univers 09:00:00 09:00:00 BOBBY navarrete [facility] 2020-02-17 2020-02-17 Telephone [facility] 1.2.840.114 [id number] [facility] 00:00:00 00:00:00 Bobby Castellanos 350.1.13.10 i [place]2.[place].2.[place] [phone] Hi dical nal 220 [facility] 2019-12-29 2019-12-29 Telephone [facility] 1.2.840.114 [id number] Univers 00:00:00 00:00:00 Gonzalez Castellanos 350.1.13.10 [place] of [place]2.[place].2.[place] [phone] Hi dicms nal [address] [place] [address] 2019-12-20 2019-12-20 [facility] 1.2.151.800 [id number] [facility] 00:00:00 00:00:00 Bobby Castellanos 350.1.13.10 i ty [place]2.[place].2.[place] [phone] Hi dical nal 220 [facility] 2019-11-04 2019-11-04 Telephone David, [facility] 1.2.840.114 [id number] [facility] 00:00:00 00:00:00 Gonzalez Castellanos 350.1.13.10 [place] of [place].2.[place] [phone] Hi dicms nal [address] [place] [address] 2019-10-31 2019-10-31 [facility] 1.2.840.114 [id number] Univers 00:00:00 00:00:00 Gonzalez Castellanos 350.1.13.10 [place] of [place] 4[place]2.7.2.[place] [phone] Hi dicms nal [address] [place] [address] 2019-10-22 2019-10-22 Office [facility] [id number] Univers 09:39:28 10:39:59 Visit Bobby Castellanos 350.1.13.10 i ty [place] 4[place]2.7.2.[place] [phone] [facility] 220 [facility] 2019-10-22 2019-10-22 Outpatient R [facility] [id number] Univers 09:30:00 09:30:00 BOBBY ity [facility] 2019-10-01 2019-10-01 Telephone [facility] 1.2.840.114 [id number] Univers 00:00:00 00:00:00 Bobby Castellanos 350.1.13.10 i [place] 4.2.7.2.[place] [phone] [address] 2019-08-06 2019-08-06 Outpatient R [facility] [id number] Univers 15:00:00 15:00:00 [facility] 2019-08-05 2019-08-05 [facility] 1.2.840.114 [id number] Univers 15:26:13 16:48:10 Visit Rm, Adc Surg Spec Procedure Corinne 3 50.1.13.10 it[place] 4.2.7.2.[place] [phone] [address] 2019-08-05 2019-08-05 [facility] [id number] Univers 15:30:00 15:30:00 [facility] 2019-08-05 2019-08-05 Orders Doctor NIXON 1.2.840.114 [id number] Univers 00:00:00 00:00:00 Only Unassigned, ANA CRISTINA 350.1.13.10 ity of [place] [facility] 4.2.7.2.686 Yamil as [phone] [address] 2019-07-09 2019-07-09 Office [facility] 1.2.840.114 [id number] Univers 13:23:06 14:56:02 Visit Mary Ellen Castellanos 350.1.13.10 i ty of [place] 4[place]2.7.2.[place] [phone] [address] 2019-07-09 2019-07-09 [facility] [id number] Univers 08:00:00 08:00:00 MARY ELLEN ity of [facility] 2019-07-09 2019-07-09 Orders Doctor HUSSAIN 1.2.840.114 [id number] Univers 00:00:00 00:00:00 Only Unassigned, ANA CRISTINA 350.1.13.10 [place]y of [place] [facility] 4.2.7.2.686 Yamil as [phone] [address] 2019-05-17 2019-05-17 Orders Doctor HUSSAIN 1.2.840.114 [id number] Univers 00:00:00 00:00:00 Only Unassigned, ANA CRISTINA 350.1.13.10 [place]y of [place] HOSPITAL 4.2.7.2.686 Yamil as [phone] [address] 2019-05-12 2019-05-12 Telephone [facility] 1.2.840.114 [id number] [facility] 00:00:00 00:00:00 Gonzalez Castellanos 350.1.13.10 [place] of [place] 4.2.[place].2.[place] [phone] Hi dicms nal [address] [place] [address] 2019-05-10 2019-05-10 Refill [facility] 1.2.840.114 [id number] Univers 00:00:00 00:00:00 Gonzalez Castellanos 350.1.13.10 [place] of [place] 4.2.7.2.[place] [phone] Hi dicms nal [address] [place] [address] 2019-05-07 2019-05-07 Telemedici David [facility] 1.2.840.114 [id number] Univers 08:59:30 09:57:58 ne Visit Gonzalez Castellanos 350.1.13.10 [place] of [place] 4.2.7.2.[place] [phone] [address] 2019-05-07 2019-05-07 Outpatient R GONZALEZ HERNANDEZ [facility] [id number] Univers 09:20:00 09:20:00 GONZALEZ HERNANDEZ itricarda [facility] 2019-05-07 2019-05-07 [facility] 1.2.840.114 [id number] Univers 00:00:00 00:00:00 Bobby Bartholomew Corinne 350.1.13.10 i ty of [place] 4.2.[place].2.[place] [phone] [facility] 220 [facility] 2019-05-06 2019-05-06 Telephone [facility] 1.2.840.114 [id number] Univers 00:00:00 00:00:00 Bobby Bartholomew [facility] 350.1.13.10 it y of [place] 4.2.7.2.686 Yamil as Professio [phone] [facility] [address] Office [facility] 2019-04-23 2019-04-23 Office [facility] [id number] Univers 12:56:55 14:23:40 Visit Bobby Castellanos 350.1.13.10 i ty of [place] 4.2.7.2.[place] [phone] [address] 2019-04-23 2019-04-23 Outpatient R [facility] [id number] Univers 08:30:00 08:30:00 BOBBY navarrete of [facility] 2019-04-23 2019-04-23 Orders Doctor HUSSAIN 1.2.840.114 [id number] Univers 00:00:00 00:00:00 Only Unassigned, ANA CRISTINA 350.1.13.10 [place]y of [place] [facility]ITAL 4.2.7.2.686 Yamil as [phone] [address] 2018-10-27 2018-10-27 Refill [facility] 1.2.840.114 [id number] Univers 00:00:00 00:00:00 Ken Castellanos 350.1.13.10 i ty [place] 4.2.[place].2.[place] [phone] [address] 2018-10-16 2018-10-16 Orders Doctor HUSSAIN 1.2.840.114 [id number] Univers 00:00:00 00:00:00 Only Unassigned, ANA CRISTINA 350.1.13.10 [place]y of [place] [facility]OSPITAL 4.2.7.2.686 Yamil as [phone] [address] Results Test Description Test Time Test Comments Results Result Comments Source POCT HEMOGLOBIN A1C TEST 2022-02-15 19:33:00 Test Item Value Reference Range Interpretation Comme nts POCT HBA1C (test code = 4548-4) 6.7 % 4-6 A Lab Interpretation (test code = 66192-3) Abnormal [facility] HEMOGLOBIN A1C [id number] 19:33:00 Test Item Value Reference Range Interpretation Comments POCT HBA1C (test code = 4548-4) 6.7 % 4-6 A Lab Interpretation (test code = Abnormal 72945-0) [facility] HEMOGLOBIN A1C [id number] 19:40:00 Test Item Value Reference Range Interpretation Comments POCT HBA1C (test code = 4548-4) 6.3 % 4-6 A Lab Interpretation (test code = Abnormal 26970-9) [facility] [id number] 07:20:00 Test Item Value Reference Range Interpretation Comments SODIUM (test code = 141 MMOL/L 137-145 N NA) POTASSIUM (test code = 4.3 MMOL/L 3.5-5.1 N K) CHLORIDE (test code = 106 MMOL/L 98-107 N CL) CARBON DIOXIDE (test 29 MMOL/L 22-30 N code = CO2) GLUCOSE (test code = 165 MG/DL 74-106 H GLU) BLOOD UREA NITROGEN 12 MG/DL 9-20 N (test code = BUN) GLOMERULAR FILTRATION > 60 Report ing units: RATE (test code = GFR) ml/mi n/1.73 m2 (Modified MDRD Formula)Referen ce Range: > or = 6 0 ml/min/1.73 m2 CREATININE (test code 0.70 MG/DL 0.66-1.25 N = CREAT) CALCIUM (test code = 9.1 MG/DL 8.4-10.2 N CA) LIPID PROFILE (CORONARY RISK)2018-09-12 07:20:00 Test Item Value Reference Range Interpretation Comments TRIGLYCERIDES (test 47 MG/DL TRIGLYCE RIDES code = TRIG) REFERENCE RANGE:Normal: < 150 mg/dLBorderline High: 150-199 mg/dLHi gh: 200-499 mg/dLVe ry High: >=500 mg/ dL CHOLESTEROL (test code 117 MG/DL <200 = CHOL) HDL CHOLESTEROL (test 29 MG/DL 40-59 L code = HDL) LIPOPROTEIN LDL (test 87 MG/DL 0-99 N OPTI MAL.........<100 code = LDL) mg/dLNEAR OPTIMAL/ABOVE OPTIMAL........ .100-12 9 mg/dL BORDERL INE HIGH.........13 0-159 mg/dL HIGH.........16 0-189 mg/dL VERY HIGH.........>/ = 190 mg/dL [id number] 07:20:00 Test Item Value Reference Range Interpretation Comments MAGNESIUM (test code = MAG) 2.2 MG/DL 1.6-2.3 N PROTHROMBIN [id number] 07:10:00 Test Item Value Reference Range Interpretation Comments PROTHROMBIN TIME 11.4 SECONDS 9.6-11.6 N PATIENT (test code = PTP) INTERNATIONAL NORMAL 1.1 0.8-1.1 N The INR is to be RATIO (test code = used only for INR) monitoring oral anticoagulantth erap y. INDICATION INR VALUE ---- ---- ---- -------1. Prophylaxis, de ep venous thrombos is, including high risk surgery. 2.0 - 3.0 2. Prophylaxis, deep venous thrombosis, hip surgery, treatm ent for deep venous thrombosis or pulmonary prevention of systemic emboli sm in patients wit h valvular heart disease, atrial fibrillation, tissue heart va lve, or acute myocar dial infarction. 2.0 - 3.0 3. Shipping Processor al prosthesis hear t valves, recurre nt systemic emboli sm. 3.0 - 4.5 PTT [id number] 07:10:00 Test Item Value Reference Range Interpretation Comments PTT ACTIVATED (test code = APTT) 29.6 SECONDS 22.0-33.0 N BASIC METABOLIC [id number] 07:10:00 Test Item Value Reference Range Interpretation Comments SODIUM (test code = 141 MMOL/L 137-145 N NA) POTASSIUM (test code = 4.3 MMOL/L 3.5-5.1 N K) CHLORIDE (test code = 106 MMOL/L 98-107 N CL) CARBON DIOXIDE (test 29 MMOL/L 22-30 N code = CO2) GLUCOSE (test code = 165 MG/DL 74-106 H GLU) BLOOD UREA NITROGEN 12 MG/DL 9-20 N (test code = BUN) GLOMERULAR FILTRATION > 60 Report ing units: RATE (test code = GFR) ml/mi n/1.73 m2 (Modified MDRD Formula)Referen ce Range: > or = 6 0 ml/min/1.73 m2 CREATININE (test code 0.70 MG/DL 0.66-1.25 N = CREAT) CALCIUM (test code = 9.1 MG/DL 8.4-10.2 N CA) LIPID PROFILE (CORONARY RISK)2018-09-12 07:10:00 Test Item Value Reference Range Interpretation Comments TRIGLYCERIDES (test 47 MG/DL TRIGLYCE RIDES code = TRIG) REFERENCE RANGE:Normal: < 150 mg/dLBorderline High: 150-199 mg/dLHi gh: 200-499 mg/dLVe ry High: >=500 mg/ dL CHOLESTEROL (test code 117 MG/DL <200 = CHOL) HDL CHOLESTEROL (test 29 MG/DL 40-59 L code = HDL) LIPOPROTEIN LDL (test MG/DL 0-99 code = LDL) [id number] 07:10:00 Test Item Value Reference Range Interpretation Comments MAGNESIUM (test code = MAG) 2.2 MG/DL 1.6-2.3 N CBC W/AUTO [id number] 06:46:00 Test Item Value Reference Range Interpretation Comments WHITE BLOOD CELL (test code = 5.7 K/MM3 3.8-9.8 N WBC) RED BLOOD CELL (test code = 4.65 M/MM3 3.95-5.67 N RBC) HEMOGLOBIN (test code = HGB) 13.0 G/DL 12.4-16.7 N HEMATOCRIT (test code = HCT) 41.1 % 35.9-49.5 N MEAN CELL VOLUME (test code = 88 fL 81.7-96.1 N MCV) MEAN CELL HGB (test code = MCH) 28.0 pg 27.6-33.2 N MEAN CELL HGB CONCETRATION 31.6 % 32.9-35.5 L (test code = MCHC) RED CELL DISTRIBUTION WIDTH 14.3 % 12.1-15.2 N (test code = RDW) PLATELET COUNT (test code = 174 K/MM3 129-368 N PLT) MEAN PLATELET VOLUME (test code 10.4 fl 7.4-10.4 N = MPV) NEUTROPHIL % (test code = NT%) 65.3 % 43-75 N IMMATURE GRANULOCYTE % (test 0.2 % 0.0-2.0 N code = IG%) LYMPHOCYTE % (test code = LY%) 19.5 % 14-44 N MONOCYTE % (test code = MO%) 11.3 % 4-13 N EOSINOPHIL % (test code = EO%) 3.2 % 0-6 N BASOPHIL % (test code = BA%) 0.5 % 0-2 N NUCLEATED RBC % (test code = 0.0 % 0-1.0 N NRBC%) NEUTROPHIL # (test code = NT#) 3.69 K/mm3 2.0-7.6 N IMMATURE GRANULOCYTE # (test 0.01 x10 3/uL 0-0.03 N code = IG#) LYMPHOCYTE # (test code = LY#) 1.10 K/mm3 1.0-3.8 N MONOCYTE # (test code = MO#) 0.64 K/mm3 0.1-0.8 N EOSINOPHIL # (test code = EO#) 0.18 K/mm3 0.0-0.2 N BASOPHIL # (test code = BA#) 0.03 K/mm3 0.0-0.2 N NUCLEATED RBC # (test code = 0.00 K/mm3 0.0-0.1 N NRBC#) Notes Date/Time Note Provider Source 2018-09-12 11:20:00-00:00 [id number] [place] [address] PATIENT NAME: FELICIANO ROBERTSON ADMIT DATE: 9 ACCOUNT NO: [id number] ROOM NO: AGE: 67 REPORT TYPE: CARDIAC CATHETERIZATION REPORT SEX: M ADMITTING PHYSICIAN: ATTENDING PHYSICIAN:Lay Escalona MD PROCEDURE DATE: 09/12/2018 CARDIOLOGY PROCEDURE SUPERVISOR FINISHING DEPARTMENT: Lay Escalona MD TITLE OF THE PROCEDURE: 1. Left heart catheterization. 2. FFR of the LAD. INDICATION FOR THE PROCEDURE: Dyspnea, congestiv e heart failure, cardiomyopathy, atrial fibrillation, ventricular tachycardia, and coronary artery disease. ESTIMATED BLOOD LOSS: Minimal. COMPLICATIONS: None. CONTRAST: 70 mL. ANESTHESIA: Conscious sedation with Versed and f entanyl and 1% lidocaine for local anesthesia. FINAL DIAGNOSES: Dilated cardiomyopathy, ejectio n fraction around 30%, single-vessel coronary artery disease wi th FFR of 0.92 and an iFR of 0.95. The recommendation is medical therapy. PROCEDURE IN DETAIL: After informed consent, the patient was brought to the cardiac catheterization lab in a stable fasting nonsedated state. He was prepped and draped in the usual sterile manner. After conscious sedation, 1% lidocaine was administered to the right common f emoral artery area for local anesthesia. A 6-Bel[place] sheath was placed in the right common femoral artery using standard techniques and fluoroscop y. After heparinization, left coronary angiogram showed 30% ostial left main, 30% proximal LAD, plaquing then followed by a 55% eccentric plaque at the origin of the d iagonal and the septal. The circumflex had 20% proximal plaquing. Right coronary artery showed 30% proximal and 20% mid and 20% distal plaquing. Left ventri cular angiogram showed an ejection fraction around 30% . Left ventricular end-diastolic pressure of 18 and no significant aortic valve gradient. Gi roselia the patient's presentation and the eccentricity of the LAD lesi on, the [place] wire was used to do iFR and then FFR of the LAD. The guide used was an XB LAD 4. The [place] wire was used and the iFR was 0.95 and the FFR was 0.92, which is not significant, so the patient will PATIENT NAME: FELICIANO ROBERTSON 0571 be treated medically. The right groin was sealed using Angio-Seal. There were no complications. The patient tolerated the proc edure well. He will be transferred back to the holding area for observation to be discharged later on today on medical therapy and risk factor modific ation. Dictated By: Lay Escalona MD WT: CATH:JOSHUA/EDOUARD/KAIA Conf#: [id number]/DID#: [id number] Authenticated by Lay Escalona MD On 08/18 03:23:49 PM at 1524 PATIENT NAME: FELICIANO ROBERTSON 0571 2018-09-12 07:39:00-00:00 [id number] [place] [address] PATIENT NAME: FELICIANO ROBERTSON ADMIT DATE: 9 ACCOUNT NO: [id number] ROOM NO: AGE: 67 REPORT TYPE: ELECTROCARDIOGRAM SEX: M ADMITTING PHYSICIAN: ATTENDING PHYSICIAN:Lay Escalona MD Order: [id number] Test Reason : CAD Test Date/Time Stamp: [facility] Sep 12 2018 07:39:56 Blood Pressure : / mmHG Vent. Rate : 055 BPM Atrial Rate : 070 BPM P-R Int : 000 ms QRS Dur : 070 ms QT Int : 420 ms P-R-T Axes : 000 071 058 degree s QTc Int : 401 ms Atrial fibrillation with slow ventricular respon se T wave abnormality, consider lateral ischemia Abnormal ECG No previous ECGs available Confirmed by LAY ESCALONA ([id number]) on 09/12/2018 3:28:33 PM Referred By: Lay Escalona Confirmed by:LAY BRUCE at 1528 PATIENT NAME: FELICIANO ROBERTSON 0571 2018-09-11 17:34:00-00:00 [id number] [place] [id number] PATIENT NAME: FELICIANO ROBERTSON ADMIT DATE: 9 ACCOUNT NO: [id number] ROOM NO: AGE: 67 REPORT TYPE: PREOP HISTORY AND PHYSICAL SEX: M ADMITTING PHYSICIAN: ATTENDING PHYSICIAN:Lay Escalona MD ADMISSION DATE: 09/12/2018 ADMISSION HISTORY AND PHYSICAL SUPERVISOR FINISHING DEPARTMENT: Lay Escalona MD REASON FOR ADMISSION: Cardiac catheterization to assess for significant coronary artery disease in a patient with a newl y diagnosed acute systolic congestive heart failure and cardiomyopathy, mul tiple cardiovascular risk factors. HISTORY OF PRESENT ILLNESS: Feliciano is a 67-year-old patient of mine who I have been following in my office since 2012. At that time, he was diagnosed with paroxysmal atrial fibrillati on and multiple cardiovascular risk factors and has been treated medically. Recently, the patient's symptoms have been getting worse and he appeared to have flipped into chron ic atrial fibrillation. His noninvasive workup was carried out with an echo in March 2018. His ejection fraction was 45% to 50%, which has changed from previous ejection fraction of 50% to 55%. He underwent a nuclear stress test o n 08/19/2018 and ejection fraction was 28% with no [place] dence of ischemia, but a picture of cardiomyopathy. His last Holter monitor showed frequent PVCs with chronic atrial fibrillation, so I assume that the worsening ejection fraction was somewhat related to his arrhythmia, but also on his last monitor, he had ventricular tachycardia episodes. The patient's medical therapy was adju sted and then he presented on 09/10/2018 with acute systol ic congestive heart failure with edema, dyspnea. He was evaluated in the office on 09/11/2018 and gi roselia his risk factors and that his coronaries have not been checked invasively. He is here for cardiac catheterization to assess hi s coronaries to assess for further evaluation of his ventricular tachycardia and treatment of his con gestive heart failure and cardiomyopathy. PAST MEDICAL HISTORY: Remarkable for hypertensio n, diabetes, sleep apnea, on CPAP, ventricular tachycardia, paroxysmal suprav entricular tachycardia, PVCs, and now with a history of chronic atrial fibrill ation. PAST SURGICAL HISTORY: Hernia surgery. ALLERGIES: NO KNOWN DRUG ALLERGIES. MEDICATIONS: Multivitamin, fish oil, metformin 1 000 mg b.i.d., atorvastatin, magnesium oxide, Xarelto 20 mg daily is on hold. He used to take Viagra as needed, amlodipine/benazepri l 07/06 was just changed to Entresto and the Entresto PATIENT NAME: FELICIANO ROBERTSON 0571 dose was 49/51 b.i.d. He also takes carvedilol 6 .25 mg b.i.d., which was a recent increase and takes aspirin 81 mg daily. H e received Lasix in the Emergency Room and he will need to be on daily L asix. SOCIAL HISTORY: There is no history of smoking, alcohol, or street drug use. FAMILY HISTORY: Negative for premature atheroscl erosis. Father at 73 of unspecified heart disease. He had atrial fibrill ation and COPD as well as asbestosis. REVIEW OF SYSTEMS: Remarkable for fatigue, edema , insomnia, sleep apnea, dizziness, mouth breathing at night, easy bruisa bility. No acute GI or symptoms. No TIAs or strokes. PHYSICAL EXAMINATION: GENERAL: Reveals a pleasant elderly male in no a cute distress. VITAL SIGNS: Blood pressure 131/77, pulse 60 and regular, respiratory rate 18 and unlabored, temperature afebrile. HEENT: Head, atraumatic and normocephalic. Eyes and ENT examination within normal for age. NECK: Supple. Mild jugular venous elevation. No bruits or lymphadenopathy. Normal upstroke. LUNGS: Decreased air entry, otherwise clear and resonant. HEART: Regular rate and rhythm with II/V I systolic ejection murmur at the left lower sternal border. No gallops. ABDOMEN: Soft. No tenderness, no organomegaly, n o masses or bruits. EXTREMITIES: 2+ edema, 2+ distal pulses. No cyan osis or clubbing. NEUROLOGIC: Alert and oriented x3. Examination a ppears to be nonfocal. LABORATORY DATA: From recent hospitalization rev iewed from this admission pending, the impression of the noninvasive cardi ovascular workup enclosed. IMPRESSION: This is a 67-year-old patient with m ultiple cardiovascular risk factors, who has never had a previous heart cath eterization, who has chronic atrial fibrillation, has PVC s, has ventricular tachycardia, presents with acute systolic congestive heart failure. He does have cardiomyopathy with depressed ejection fraction and valvular insuffici ency. He is here for evaluation of his coronaries to assess for possible revascularizat ion. He has a high likelihood of significant coronary artery disease. The sea mmendation is to proceed with the above-mentioned procedur e. The risks and benefits of the planned procedures were discussed in detail with the patient and hi s and he is willing to proceed. Rest as per orders. Dictated By: Lay Escalona MD WT: PREOPHP:Z.XIAO/EDOUARD/KAIA Conf#: [id number]/DID#: [id number] Authenticated by Lay Escalona MD On 08/18 03:57:24 PM PATIENT NAME: FELICIANO ROBERTSON 0571 at 1557 PATIENT NAME: FELICIANO ROBERTSON 0571
[2022-08-20 07:39] LABS: Absolute Lymphocytes (CBC) 0.7 K/uL (0.7-4.9); Hematocrit 32.6 % (39.6-49.0); Lymphocytes % 10.1 % (15.3-44.8); MCV 86.8 fL (80-100); MPV 7.9 fL (7.6-11.3); RBC Red Blood Cell Count 3.76 M/uL (4.33-5.43)
[2022-08-20 07:58] LABS: Magnesium 1.5 mg/dL (1.6-2.4); Potassium 3.6 mEq/L (3.5-5.1); Troponin High Sensitivity 16.6 pg/mL (<58.9)
--- NOTE | 2022-08-20 08:53 | RAD REPORT ---
EXAM DESCRIPTION: Ben Anderson And Jeni (2 Views)08/20/2022 8:08 am CLINICAL HISTORY: sob COMPARISON: 2019 FINDINGS: Upper lobe vessels are prominent indicative pulmonary venous hypertension The lungs appear clear of acute infiltrate Heart is mildly to moderately enlarged
--- NOTE | 2022-08-20 08:58 | ER ---
Nurse's Notes [facility] Name: Noel Cobos Age: 71 yrs Sex: Male : 1950 Arrival Date: 08/20/2022 Time: 06:58 Bed 5 Private MD: Diagnosis: Heart failure, unspecified;Shortness of breath;Hypomagnesemia Presentation: 08/20 07:16 Chief complaint: Patient states: SOB since last night, denies chest pain, hx of CHF. iw Coronavirus screen: At this time, the client does not indicate any symptoms associated with coronavirus-19. Ebola Screen: Patient negative for fever greater than or equal to 101.5 degrees Fahrenheit, and additional compatible Ebola Virus Disease symptoms Patient denies exposure to infectious person. Patient denies travel to an Ebola-affected area in the 21 days before illness onset. No symptoms or risks identified at this time. Initial Sepsis Screen: Does the patient meet any 2 criteria? No. Patient's initial sepsis screen is negative. Does the patient have a suspected source of infection? No. Patient's initial sepsis screen is negative. Risk Assessment: Do you want to hurt yourself or someone else? Patient reports no desire to harm self or others. Onset of symptoms was August 19, 2022. 07:16 Method Of Arrival: Ambulatory iw 07:16 Acuity: AUDREY 3 iw Triage Assessment: 11:15 Respiratory: the patient has mild shortness of breath. iw Historical: - Allergies: 07:17 No Known Allergies; iw - Home Meds: 07:24 aspirin 81 mg Oral chew 1 tab once daily [Active]; metformin 750 mg oral Tablet, jl7 Extended Release 24 hr 2 times per day [Active]; Foltanx oral 2 times per day [Active]; Viagra Oral [Active]; atorvastatin 40 mg oral tablet [Active]; Folbic oral [Active]; carvedilol 6.25 mg oral tablet 2 times per day [Active]; Xarelto 20 mg Oral tab 1 tab once daily [Active]; sildenafil 100 mg oral tablet [Active]; Entresto 97-103 mg Oral tab 1 tab 2 times per day [Active]; furosemide 40 mg Oral tab 1 tab once daily [Active]; magnesium oxide 400 mg Oral tab daily [Active]; gabapentin 300 mg oral capsule 2 times per day [Active]; spironolactone 25 mg Oral tablet [Active]; Levemir FlexPen 100 unit/mL (3 mL) subcutaneous Insulin Pen [Active]; - PMHx: 07:17 Atrial Fib; CHF; Diabetes - NIDDM; Hyperlipidemia; neuropathy; Sleep Apnea; iw 07:24 Hypertensive disorder; Congestive heart failure; jl7 - PSHx: 07:17 Appendectomy; foot; iw - Immunization history:: Adult Immunizations Pneumococcal vaccine is up to date. - Social history:: Smoking status: Patient denies any tobacco usage or history of. Screenin:25 [facility] ED Fall Risk Assessment (Adult) Score/Fall Risk Level 0 - 2 = Low Risk. Abuse iw screen: Denies threats or abuse. Denies injuries from another. Nutritional screening: No deficits noted. Tuberculosis screening: No symptoms or risk factors identified. Assessment: 07:25 General: Appears in no apparent distress. Behavior is calm, cooperative. Pain: Denies iw pain. Neuro: Level of Consciousness is awake, alert, obeys commands, Oriented to person, place, time. Cardiovascular: Patient's skin is warm and dry. Rhythm is regular. Respiratory: Reports shortness of breath on exertion Airway is patent Respiratory effort is even, unlabored, Breath sounds are clear bilaterally. GI: Abdomen is non-distended. Derm: Skin is intact, is healthy with good turgor. Musculoskeletal: Range of motion: intact in all extremities. 07:37 Reassessment: Patient appears in no apparent distress at this time. Patient and/or db family updated on plan of care and expected duration. Pain level reassessed. Patient is alert, oriented x 3, equal unlabored respirations, skin warm/dry/pink. 08:32 Reassessment: Patient appears in no apparent distress at this time. Patient and/or iw family updated on plan of care and expected duration. Pain level reassessed. Patient is alert, oriented x 3, equal unlabored respirations, skin warm/dry/pink. Patient denies pain at this time. 09:34 Reassessment: Patient appears in no apparent distress at this time. Patient and/or db family updated on plan of care and expected duration. Pain level reassessed. Patient is alert, oriented x 3, equal unlabored respirations, skin warm/dry/pink. patient provided urinal. General: Appears in no apparent distress. comfortable. Vital Signs: 07:17 BP 153 / 89; Pulse 69; Resp 18 S; Temp 98.3; Pulse Ox 93% on R/A; Weight 92.99 kg; iw Height 6 ft. 2 in. ; Pain 0/10; 08:31 BP 132 / 77; Pulse 62; Resp 16; Pulse Ox 96% on R/A; Pain 0/10; iw 09:00 BP 127 / 72; Pulse 56; Resp 16; Pulse Ox 96% on R/A; db 07:17 Body Mass Index 26.32 (92.99 kg, 187.96 cm) iw 07:17 Pain Scale: Adult iw 08:31 Pain Scale: Adult iw ED Course: 07:01 Patient arrived in ED. ag3 07:04 Yves Townsend DO is Attending Physician. ms3 07:17 Triage completed. iw 07:17 Arm band placed on. iw 07:24 Patient has correct armband on for positive identification. jl7 07:30 Inserted saline lock: 20 gauge in right antecubital area, using aseptic technique. db Blood collected. 07:35 Gil Fernandez, ANUJ is Primary Nurse. db 08:09 Chest Pa And Lat (2 Views) XRAY In Process Unspecified. EDMS 08:56 Flaco Irene MD is Hospitalizing Provider. ms3 11:14 No provider procedures requiring assistance completed. Patient did not have IV access iw during this emergency room visit. Administered Medications: 09:20 Drug: Magnesium Sulfate IVPB 2 grams Route: IVPB; Infused Over: 2 hrs; Site: right db antecubital; 11:20 Follow up: IV Status: Completed infusion iw 09:20 Drug: Potassium Chloride IV 20 mEq Route: IV; Rate: calculated rate; Site: right db antecubital; 11:20 Follow up: IV Status: Completed infusion iw Medication: 07:26 VIS not applicable for this client. iw Outcome: 08:57 Decision to Hospitalize by Provider. ms3 11:15 Admitted to Med/surg accompanied by tech, via wheelchair, Report called to gil iw 11:15 Condition: good 11:15 Instructed on the need for admit. 11:54 Patient left the ED. iw Signatures: Dispatcher [employer] EDMS Kaylin Milton RN ANUJ iw Rachael Glass RN RN jl7 Bertha Morocho ag3 Yves Townsend DO DO ms3 Gil Fernnadez, RN RN db Corrections: (The following items were deleted from the chart) 07:17 07:17 Immunization history: Adult Immunizations Flu vaccine is up to date. iw iw
--- NOTE | 2022-08-20 08:58 | EDPHYS ---
Physician Documentation [facility] Name: Noel Cobos Age: 71 yrs Sex: Male : 1950 Arrival Date: 08/20/2022 Time: 06:58 Bed 5 Private MD: ED Physician Yves Townsend HPI: 08/20 07:29 This 71 yrs old Black Male presents to ER via Ambulatory with complaints of Breathing ms3 Difficulty. 07:29 71-year-old male with past medical history of atrial fibrillation, congestive heart ms3 failure, diabetes, hyperlipidemia, neuropathy, sleep apnea presents for shortness of breath that began this morning. Patient denies pain. Patient denies chest pain, vomiting, fevers, chills, cough. Patient endorses nausea, lightheadedness. Patient states that shortness of breath is worse when laying flat. Historical: - Allergies: 07:17 No Known Allergies; iw - Home Meds: 07:24 aspirin 81 mg Oral chew 1 tab once daily [Active]; metformin 750 mg oral Tablet, jl7 Extended Release 24 hr 2 times per day [Active]; Foltanx oral 2 times per day [Active]; Viagra Oral [Active]; atorvastatin 40 mg oral tablet [Active]; Folbic oral [Active]; carvedilol 6.25 mg oral tablet 2 times per day [Active]; Xarelto 20 mg Oral tab 1 tab once daily [Active]; sildenafil 100 mg oral tablet [Active]; Entresto 97-103 mg Oral tab 1 tab 2 times per day [Active]; furosemide 40 mg Oral tab 1 tab once daily [Active]; magnesium oxide 400 mg Oral tab daily [Active]; gabapentin 300 mg oral capsule 2 times per day [Active]; spironolactone 25 mg Oral tablet [Active]; Levemir FlexPen 100 unit/mL (3 mL) subcutaneous Insulin Pen [Active]; - PMHx: 07:17 Atrial Fib; CHF; Diabetes - NIDDM; Hyperlipidemia; neuropathy; Sleep Apnea; iw 07:24 Hypertensive disorder; Congestive heart failure; jl7 - PSHx: 07:17 Appendectomy; foot; iw - Immunization history:: Adult Immunizations Pneumococcal vaccine is up to date. - Social history:: Smoking status: Patient denies any tobacco usage or history of. ROS: 07:29 Constitutional: Negative for fever, and chills. Neck: Negative for injury, pain, and ms3 swelling, Cardiovascular: Negative for chest pain, and palpitations. Abdomen/GI: Negative for abdominal pain, nausea, vomiting, diarrhea, and constipation, MS/Extremity: Negative for injury and deformity, Skin: Negative for injury, rash, and discoloration. 07:29 Respiratory: Positive for shortness of breath. 07:29 All other systems are negative. Exam: 07:29 Constitutional: This is a well developed, well nourished patient who is awake, alert, ms3 and in no acute distress. Head/Face: Normocephalic, atraumatic. Neck: Trachea midline, no cervical lymphadenopathy. Supple, full range of motion without nuchal rigidity, or vertebral point tenderness. No Meningismus. Chest/axilla: Normal chest wall appearance and motion. Nontender with no deformity. Cardiovascular: Regular rate and rhythm with a normal S1 and S2. No gallops, murmurs, or rubs. Normal PMI, no JVD. No pulse deficits. Respiratory: Lungs have equal breath sounds bilaterally, clear to auscultation and percussion. No rales, rhonchi or wheezes noted. No increased work of breathing, no retractions or nasal flaring. Abdomen/GI: Soft, non-tender, with normal bowel sounds. No distension or tympany. No guarding or rebound. No evidence of tenderness throughout. Skin: Warm, dry with normal turgor. Normal color with no rashes, no lesions, and no evidence of cellulitis. MS/ Extremity: Pulses equal, no cyanosis. Neurovascular intact. Full, normal range of motion. 07:32 ECG was reviewed by the Attending Physician. ms3 Vital Signs: 07:17 BP 153 / 89; Pulse 69; Resp 18 S; Temp 98.3; Pulse Ox 93% on R/A; Weight 92.99 kg; iw Height 6 ft. 2 in. ; Pain 0/10; 08:31 BP 132 / 77; Pulse 62; Resp 16; Pulse Ox 96% on R/A; Pain 0/10; iw 09:00 BP 127 / 72; Pulse 56; Resp 16; Pulse Ox 96% on R/A; db 07:17 Body Mass Index 26.32 (92.99 kg, 187.96 cm) iw 07:17 Pain Scale: Adult iw 08:31 Pain Scale: Adult iw MDM: 07:18 Patient medically screened. ms3 07:29 Differential diagnosis: CHF exacerbation, Myocardial Infarction pulmonary edema. ms3 08:57 Data reviewed: vital signs, nurses notes, radiologic studies, plain films, and as a ms3 result, I will admit patient. Consideration of Admission/Observation Patient was admitted/placed on observation. Management of patient was discussed with the following: Hospitalist: Dr Irene. I considered the following discharge prescriptions or medication management in the emergency department Medications were administered in the Emergency Department. See MAR. Independent interpretation of the following test(s) in the Emergency Department X-Ray: My interpretation is CXR reviewed by me shows cardiomegaly. Care significantly affected by the following chronic conditions: Hypertension, Congestive Heart Failure. Counseling: I had a detailed discussion with the patient and/or guardian regarding: the historical points, exam findings, and any diagnostic results supporting the discharge/admit diagnosis, lab results, radiology results, the need for further work-up and treatment in the hospital. Response to treatment: There is no appreciated change of the patient's symptoms at this time, and as a result, I will admit patient. ED course: Discussed labs, chest x-ray, EKG with patient and his . Discussed observation with the patient and he understands and agrees with plan. All questions were answered. Patient remains in stable condition in the emergency department. 08/20 07:19 Order name: Basic Metabolic Panel; Complete Time: 08:08 ms3 08/20 07:19 Order name: CBC with Diff; Complete Time: 08:08 ms3 08/20 07:19 Order name: Magnesium; Complete Time: 08:08 ms3 08/20 07:19 Order name: NT PRO-BNP; Complete Time: 08:08 ms3 08/20 07:19 Order name: Troponin HS; Complete Time: 08:08 ms3 08/20 07:19 Order name: Chest Pa And Lat (2 Views) XRAY; Complete Time: 08:55 ms3 08/20 07:19 Order name: EKG; Complete Time: 07:20 ms3 08/20 09:30 Order name: CONS Physician Consult; Complete Time: 09:33 EDMS 08/20 07:19 Order name: Cardiac monitoring; Complete Time: 07:25 ms3 08/20 07:19 Order name: EKG - Nurse/Tech; Complete Time: 07:25 ms3 08/20 07:19 Order name: IV Saline Lock; Complete Time: 07:35 ms3 08/20 07:19 Order name: Labs collected and sent; Complete Time: 07:35 ms3 08/20 07:19 Order name: O2 Per Protocol; Complete Time: 07:25 ms3 08/20 07:19 Order name: O2 Sat Monitoring; Complete Time: :25 ms3 EC:32 Rate is 72 beats/min. Rhythm is irregularly irregular. QRS [place] is Normal. QRS interval ms3 is normal. Clinical impression: Atrial Fibrillation. Interpreted by me. Reviewed by me. Administered Medications: 09:20 Drug: Magnesium Sulfate IVPB 2 grams Route: IVPB; Infused Over: 2 hrs; Site: right db antecubital; 11:20 Follow up: IV Status: Completed infusion iw 09:20 Drug: Potassium Chloride IV 20 mEq Route: IV; Rate: calculated rate; Site: right db antecubital; 11:20 Follow up: IV Status: Completed infusion iw Disposition Summary: 08/20/22 08:57 Hospitalization Ordered Hospitalization Status: Observation ms3 Provider: Flaco Irene ms3 Location: Telemetry/MedSurg (observation) ms3 Condition: Stable ms3 Problem: new ms3 Symptoms: are unchanged ms3 Bed/Room Type: Standard ms3 Room Assignment: 219(08/20/22 10:47) jl7 Diagnosis - Heart failure, unspecified ms3 - Shortness of breath ms3 - Hypomagnesemia ms3 Forms: - Medication Reconciliation Form ms3 - SBAR form ms3 Signatures: Dispatcher [employer] Kaylin Milton RN ANUJ iw Rachael Glass RN RN jl7 Yves Townsend DO DO ms3 Stephanie Fernandez RN RN db Corrections: (The following items were deleted from the chart) 07:17 07:17 Immunization history: Adult Immunizations Flu vaccine is up to date. iw 10:47 08:57 ms3 jl7
[2022-08-20] MEDS ORDERED: Magnesium Sulfate 2gm IVPB 2 G/50 ML BAG IV ONE (09:19)
[2022-08-20] MEDS ORDERED: KCL 20 MEQ/100 mL IVPB 100 ML IV ONE (09:19)
[2022-08-20] MEDS ORDERED: TRAMADOL HCL 50 MG TAB PO PRN (09:27)
[2022-08-20] MEDS ORDERED: ACETAMINOPHEN 325 MG TABLET PO PRN (09:27)
[2022-08-20] MEDS ORDERED: ONDANSETRON 4 MG/2 ML VIAL IV PRN (09:30)
--- NOTE | 2022-08-20 09:41 | P.HP ---
Certification for Inpatient Patient admitted to: Inpatient With expected LOS: >2 Midnights Patient will require the following post-hospital care: None Practitioner: I am a practitioner with admitting privileges, knowledge of patient current condition, hospital course, and medical plan of care. Services: Services provided to patient in accordance with Admission requirements found in Title 42 Section 412.3 of the Code of Federal Regulations Patient History Date of Service: 08/20/22 Reason for admission: SOB History of Present Illness: Patient is a 71-year-old male with a past medical history significant for CHF, atrial fibrillation, DM 2 with neuropathy, HLD, JAYJAY who presents with complaint of shortness of breath onset this morning. Patient reported that he has been having intermittent shortness of breath with exertion for the past couple of months. Patient reported associated signs or symptoms of nausea, fatigue, weakness, orthopnea, dizziness, headache and generalized malaise. Patient denies any other signs or symptoms. Symptoms are aggravated or relieved by nothing. Patient decided to present to the hospital due to worsening symptoms. Allergies No Known Allergies Allergy (Unverified 08/20/22 09:34) Home medications list reviewed: No - Past Medical/Surgical History -: Hypertension -: CHF -: JAYJAY -: Hyperlipidemia -: Atrial fibrillation Past Surgical History: Reviewed- Non-Contributory - Family History Family History: Reviewed- Non-Contributory - Social History Smoking Status: Former smoker Alcohol use: No CD- Drugs: No Caffeine use: Yes Place of Residence: Home Review of Systems General: Weakness, Malaise, Other (fatigue) Eyes: Unremarkable ENT: Unremarkable Respiratory: Shortness of Breath, SOB with Excertion Cardiovascular: Orthopnea Gastrointestinal: Nausea Genitourinary: Unremarkable Musculoskeletal: Unremarkable Integumentary: Unremarkable Neurological: Weakness, Other (Dizziness, headache) Lymphatics: Unremarkable Physical Examination - Physical Exam General: Alert, In no apparent distress, Oriented x3, Cooperative HEENT: Atraumatic, PERRLA, Mucous membr. moist/pink, EOMI, Sclerae nonicteric Neck: Supple, 2+ carotid pulse no bruit, No LAD, Without JVD or thyroid abnormality Respiratory: Diminished Cardiovascular: Regular rate/rhythm, Normal S1 S2 Capillary refill: <2 Seconds Gastrointestinal: Normal bowel sounds, No tenderness Musculoskeletal: No clubbing, No swelling, No contractures, No erythema, No tenderness Integumentary: No rashes, No breakdown, No significant lesion, No tenderness/swelling Neurological: Normal gait, Normal speech, Normal tone, Normal affect Lymphatics: No axilla or inguinal lymphadenopathy - Studies Laboratory Data (last 24 hrs) 08/20/22 07:30: WBC 7.20, Hgb 11.1 L, Hct 32.6 L, Plt Count 168 08/20/22 07:30: Sodium 143, Potassium 3.6, BUN 17, Creatinine 1.05, Glucose 122 H, Magnesium 1.5 L Assessment and Plan - Plan --Acute on chronic systolic or diastolic CHF exacerbation. BNP --4880. Echocardiogram pending to assess LV\valvular function and wall motion. Patient placed on diuresis with Lasix. Daily weight and strict I/O. Continue home medications. Resilient Tile Installer consulted. We will await further recommendation from auto radio mechanic. --DM2 with neuropathy. BS monitor with sliding scale insulin. Continue gabapentin for neuropathy. --Hyperlipidemia. Continue statin. --Anemia of chronic disease. H&H stable. We will continue to monitor hemoglobin and transfuse if less than 7.0. --JAYJAY. CPAP at midnight. --Atrial fibrillation. Continue Xarelto. --Hypertension. Poorly controlled. Continue home medications and hydralazine as needed. --Headache. Tylenol as needed. --CKD 2. Baseline functions unknown. We will continue to monitor renal functions -- DVT prophylaxis with Xarelto. Discharge Plan: Home Plan to discharge in: Greater than 2 days - Advance Directives Does patient have a Living Will: No Does patient have a Durable POA for Healthcare: No - Code Status/Comfort Care Code Status Assessed: Yes Physician Review: Patient Assessed, Agree with Above Assessment and Plan Critical Care: No
[2022-08-20] MEDS ORDERED: HYDRALAZINE HCL 20 MG/ML VIAL IV PRN (09:51)
[2022-08-20] MEDS: INSULIN -REGULAR HUMAN 50 UNIT/0.5 ML ML SQ SCH ×3 (11:30→21:00)
[2022-08-20 12:43] LABS: Magnesium 2.3 mg/dL (1.6-2.4); Phosphorus 3.9 mg/dL (2.5-4.9)
[2022-08-20] MEDS: FUROSEMIDE 40 MG/4 ML VIAL IV SCH ×2 (12:59→18:27)
[2022-08-20 15:17] LABS: Specific Gravity 1.006 (1.005-1.030); Urine Bacteria None Seen /HPF (<20); Urine Bilirubin NEGATIVE (Negative); Urine Blood 1+ (Negative); Urine Clarity Clear (Clear); Urine Color Colorless (Yellow); Urine Glucose NEGATIVE (Negative); Urine Protein NEGATIVE (Negative); Urine RBC <5 /HPF (None Seen); Urine Urobilinogen Normal (Normal); Urine pH 6.5 (5.0-7.0)
--- NOTE | 2022-08-20 15:31 | CON ---
Date of Consultation: 08/20/2022 Reason For Consultation: Heart failure. History Of Present Illness: A 71-year-old male, history of CHF, atrial fibrillation, diabetes, dysli pidemia, obstructive sleep apnea, presented with shortness of breath, lower extremity edema, and orth opnea. He was diagnosed with diastolic heart failure and he sees Dr. Escalona and he has him on Lasix ; however, he has taken very low-dose, he cut down in half because he was urinating too much and his symptoms have progressively worsened over the past few days, so he presented to the emergency room. After diuresis, he is feeling much better. Past Medical History: As outlined above in HPI. Medications: Refer to reconciliation sheet for detailed list. Allergies: NO KNOWN DRUG ALLERGIES. Family History: No premature coronary artery disease or cancer. Social History: He is an ex-smoker, does not smoke currently. He does not use any drugs or drinks a lcohol. Review of Systems: All systems reviewed and they were negative except mentioned in HPI. Physical Examination: Vital Signs: Reviewed. Head and Neck: Pupils are equal, reactive to light. Intact eye movements. No cervical lymphadenopa thy. Positive JVD. Lungs: Decreased breathing sounds bilaterally with faint crackles in bases. No accessory muscle use or muscle retraction. Heart: Irregularly irregular. No extra sounds. Abdomen: Soft, nontender. Bowel sounds positive. No organomegaly. No masses or hernia. No rigidi ty or rebound. Extremities: No clubbing or cyanosis. 1+ pedal edema bilaterally. Neurologic: Alert, awake, oriented x3. No acute focal deficits appreciated. Investigations: BUN 17, creatinine 1.05. NT-proBNP is 4088. Troponin is negative and hemoglobin is 11.1. Assessment And Recommendations: 1.Acute on chronic heart failure exacerbation, unknown ejection fraction. Obtain echocardiogram and agree with IV Lasix 40 mg q.12 hours. Monitor BUN, creatinine, electrolytes, and also trend the tro ponin and please obtain an echocardiogram for tomorrow. Low-salt diet was explained to the patient a nd reinforced. 2.Hypertension. Blood pressure is elevated slightly. Should improve with further diuresis. 3.Atrial fibrillation. Rate is controlled. Continue Xarelto and recommend low dose of beta-summer , metoprolol 12.5 mg twice a day and he will follow up with his application support upon discharge. SR/MODL Voice ID: [id number] Report ID: [id number]
[2022-08-20] MEDS: RIVAROXABAN 20 MG TABLET PO SCH (18:27)
[2022-08-21 03:44] LABS: Absolute Lymphocytes (CBC) 0.7 K/uL (0.7-4.9); Lymphocytes % 8.7 % (15.3-44.8); MCV 86.6 fL (80-100); RBC Red Blood Cell Count 3.69 M/uL (4.33-5.43)
[2022-08-21 04:01] LABS: Potassium 3.6 mEq/L (3.5-5.1)
[2022-08-21 06:50] VITALS: BMI 25.2
[2022-08-21] MEDS: INSULIN -REGULAR HUMAN 50 UNIT/0.5 ML ML SQ SCH ×3 (07:30→16:30)
[2022-08-21] MEDS: FUROSEMIDE 40 MG/4 ML VIAL IV SCH ×2 (08:51→17:46)
[2022-08-21 08:52] VITALS: O2SAT 94
[2022-08-21] MEDS ORDERED: ASPIRIN 81 MG CHEWABLE TABLET PO SCH (09:00)
[2022-08-21] MEDS ORDERED: POTASSIUM CL SA 10 MEQ TAB PO ONE (09:00)
--- NOTE | 2022-08-21 12:32 | EKG ---
Test Date: 2022-08-20 Test Time: 07:16:51 Patrol Judge: LIANNE MEASUREMENT RESULTS: Intervals: Rate: 72 PA: QRSD: 68 QT: 398 QTc: 435 Spencer: P: PA: QRS: 71 T: 49 INTERPRETIVE STATEMENTS: Atrial fibrillation with premature ventricular or aberrantly conducted complexes Low voltage QRS Abnormal ECG Compared to ECG 11/14/2006 07:20:32 Ventricular premature complex(es) now present Low QRS voltage now present Sinus bradycardia no longer present T-wave abnormality no longer present Electronically Signed On 08-21-22 12:31:40 CDT by Quincy Araujo
[2022-08-21 16:25] VITALS: BP 141/73; TEMP 99.3
--- NOTE | 2022-08-21 17:41 | P.DS ---
Admission Date: 08/20/22 Discharge Date: 08/21/22 Disposition: ROUTINE DISCHARGE Discharge Condition: GOOD Reason for Admission: SOB Consultations: 1. Cardiology Hospital Course: DIAGNOSES: # Acute on Chronic Diastolic Congestive Heart Failure # Moderate Pulmonary Hypertension # Type II Diabetes Mellitus complicated by Diabetic Neuropathy # Chronic Atrial Fibrillation # Moderate Tricuspid Regurgitation # Obstructive Sleep Apnea on CPAP # Hypertension # Hyperlipidemia HOSPITAL COURSE: Mr. Noel Cobos is a pleasant 71 year old male with a past medical history significant for chronic diastolic congestive heart failure, type 2 diabetes mellitus complicated by neuropathy, chronic atrial fibrillation, hyperlipidemia, and hypertension who was admitted to the [facility] on 08/20/2022 for shortness of breath. He was admitted to the Medicine service. Upon further evaluation, he was found to have an acute on chronic diastolic congestive heart failure exacerbation. He was placed on IV diuretics and Cardiology was consulted. His chest x-ray revealed, "upper lobe vessels are prominent indicative pulmonary venous hypertension. The lungs appear clear of acute infiltrate. Heart is mildly to moderately enlarged." A transthoracic echocardiogram was performed, but formal read is currently pending. I reviewed the results with Cardiology, Dr. Araujo, who interpreted the images. He stated that his LVEF was 50-55%, he was in atrial fibrillation, there was left atrial enlargement, moderate tricuspid regurgitation, and moderate pulmonary hypertension with an RVSP of 50-[address] Araujo has evaluated him and cleared him for discharge with outpatient follow-up. He recommended increasing the furosemide from 20 mg to 40 mg. On 08/21/2022, he was seen on rounds and deemed medically stable for discharge. He was discharged with instructions to schedule follow-up appointments with his PCP (CHANTAL Contreras) and his Microbiology Quality Control Technician (Dr. Du). He was provided a prescription for furosemide. He and his family members were given the opportunity to ask questions and reported no further questions. Furthermore, all questions were answered to the best of my ability. A copy of this discharge summary will be sent to the above providers to facilitate continuity of care. Today, I personally spent 25 minutes on his case, of which greater than 50% of the time was spent in patient education, counseling, and coordination of care as described above. Vital Signs/Physical Exam: Temp Pulse Resp BP Pulse Ox 99.3 F 69 14 141/73 H 94 08/21/22 16:00 08/21/22 16:00 08/21/22 16:00 08/21/22 16:00 08/21/22 16:00 General: Alert, In no apparent distress, Oriented x3 HEENT: Atraumatic, Mucous membr. moist/pink, Sclerae nonicteric Neck: JVD not distended Respiratory: Clear to auscultation bilaterally, Normal air movement Cardiovascular: No edema, Irregular heart rate/rhythm, Systolic murmur Gastrointestinal: Normal bowel sounds, Soft and benign, Non-distended, No tenderness, No rebound, No guarding Musculoskeletal: No clubbing Integumentary: No rashes Neurological: Normal speech, Normal affect Laboratory Data at Discharge: WBC 7.80 thou/uL (4.3-10.9) 08/21/22 03:29 Hgb 10.9 g/dL (13.6-17.9) L 08/21/22 03:29 Hct 32.0 % (39.6-49.0) L 08/21/22 03:29 Plt Count 158 thou/uL (152-406) 08/21/22 03:29 Sodium 141 mEq/L (136-145) 08/21/22 03:29 Potassium 3.6 mEq/L (3.5-5.1) 08/21/22 03:29 BUN 21 mg/dL (7-18) H 08/21/22 03:29 Creatinine 1.08 mg/dL (0.70-1.30) 08/21/22 03:29 Glucose 138 mg/dL (74-106) H 08/21/22 03:29 Phosphorus 3.9 mg/dL (2.5-4.9) 08/20/22 12:22 Magnesium 2.3 mg/dL (1.6-2.4) 08/20/22 12:22 Home Medications: Aspirin 1 tab PO DAILY 08/20/22 Atorvastatin Calcium 1 tab PO DAILY 08/20/22 Bacillus Coagulans [Probiotics] 1 tab PO DAILY 08/20/22 Gabapentin 1 tab PO BID 08/20/22 Mecobal/Levomefolat Ca/B6 Phos [Foltanx Tablet] 90 mg PO DAILY 08/20/22 Metformin HCl [Metformin HCl ER] 1 tab PO BID 08/20/22 Rivaroxaban [Xarelto] 1 tab PO DAILY 08/20/22 Sacubitril/Valsartan [Entresto 97 mg-103 mg Tablet] 1 tab PO BID 08/20/22 Sildenafil Citrate 1 tab PO DAILY 08/20/22 Spironolactone 1 tab PO DAILY 08/20/22 carvediloL [Carvedilol] 1 tab PO BID 08/20/22 Furosemide 1 tab PO DAILY #30 tab 08/21/22 New Medications: Furosemide 1 tab PO DAILY #30 tab Physician Discharge Instructions: 1. Please call and schedule a follow-up appointment with your PCP (CHANTAL Contreras) in 3-5 days - Your blood work showed that you have a mild anemia. Please discuss with your PCP for further evaluation 2. Please call and schedule a follow-up appointment with your Microbiology Quality Control Technician (Dr. Du) in 5-7 days - Please have him provide refills and/or adjust the dose of your furosemide Diet: AHA Activity: Ad rod Followup: Lisseth Contreras FNP [Primary Care Provider] - KADI DU [UNKNOWN] - Time spent managing pt's care (in minutes): 25
[2022-08-21] MEDS: RIVAROXABAN 20 MG TABLET PO SCH (17:46)
--- NOTE | 2022-08-21 18:01 | PN ---
Date of Progress Note: 08/21/2022 Subjective: Seen by bedside. Doing well. Appears to be euvolemic. No shortness of breath. Review of Systems: No chest pain, shortness of breath, orthopnea, cough. No nausea, vomiting, diarrhea. All other syst ems reviewed and they were negative. Physical Examination: Vital Signs: Reviewed. Head and Neck: Pupils are equal, reactive to light. Intact eye movements. No JVD. No cervical lym phadenopathy. Neck is supple. Thyroid is not enlarged. Lungs: Clear to auscultation bilaterally. No rhonchi, wheezing, or crackles. No accessory muscle u se. Heart: Irregular. No extra sounds. Abdomen: Soft, nontender. Bowel sounds positive. No organomegaly. No masses or hernia. No rigidi ty or rebound. Extremities: No edema, clubbing, or cyanosis. Intact pulses. Skin: No rash. Neurologic: Alert, awake, oriented x3. No acute focal deficits appreciated. Investigations: Labs were reviewed. Assessment And Recommendations: 1.Acute on chronic heart failure exacerbation. On echo, ejection fraction is normal. Switch him to oral Lasix 40 mg by mouth twice a day. The patient can be released to follow up with his cardiologi st. 2.Hypertension. Blood pressure is controlled. 3.Atrial fibrillation. Heart rate is controlled. Continue Xarelto and follow up with his primary parts department supervisor post discharge. Cardiology will sign off on the case. /NATALIA Voice ID: [id number] Report ID: [id number]
--- NOTE | 2022-08-22 07:07 | ECHO ---
HEIGHT: 6 ft 2 in WEIGHT: 196 lb 3.2 oz DATE OF STUDY: 08/21/[address]: Anabel Plaza 2-DIMENSIONAL: YES M.MODE: YES DOPPLER: YES COLOR FLOW: YES TDS: PORTABLE: YES DEFINITY: BUBBLE STUDY: DIAGNOSIS: CONGESTIVE HEART FAILURE CARDIAC HISTORY: CATHERIZATION: SURGERY: PROSTHETIC VALVE: PACEMAKER: MEASUREMENTS (cm) DIASTOLIC (NORMALS) SYSTOLIC (NORMALS) IVSd 0.9 (0.6-1.2) LA Diam 4.1 (1.9-4.0) LVEF 55% LVIDd 4.6 (3.5-5.7) LVIDs 3.4 (2.0-3.5) %FS 24% LVPWd 1.0 (0.6-1.2) Ao Diam 3.8 (2.0-3.7) 2 DIMENSIONAL ASSESSMENT: RIGHT ATRIUM: ENLARGED LEFT ATRIUM: ENLARGED RIGHT VENTRICLE: NORMAL LEFT VENTRICLE: NORMAL TRICUSPID VALVE: MODERATE TRICUSPID REGURGITATION MITRAL VALVE: MILD MITRAL REGURGITATION PULMONIC VALVE: NORMAL AORTIC VALVE: NORMAL PERICARDIAL EFFUSION: NONE AORTIC ROOT: NORMAL LEFT VENTRICULAR WALL MOTION: NORMAL DOPPLER/COLOR FLOW: SEE BELOW COMMENTS: 1. NORMAL LEFT VENTRICULAR EJECTION FRACTION 50-55% 2. NORMAL WALL MOTION 3. ATRIAL FIBRILLATION 4. LEFT ATRIAL ENLARGEMENT 5. MODERATE TRICUSPID REGURGITATION 6. MILD MITRAL REGURGITATION 7. MODERATE PULMONARY HYPERTENSION WITH RIGHT VENTRICULAR SYSTOLIC PRESSURE OF 50-55 mmHg TECHNOLOGIST: ISABELL HOPPER
== END 2022-08-21 19:19 | disposition home or self-care (01) ==
LOC: ER 06:58 → ERHOLD 09:26 → INTOOBSV 09:26 → 2ND 11:20
PROVIDERS: ADMIT Internal Medicine; ATTEND Internal Medicine
PROC: 5A09357 Assistance with Respiratory Ventilation, Less than 24 Consecutive Hours, Continuous Positive Airway Pressure (ICD-10-PCS; principal; 2022-08-20)
DX: I13.0 Hypertensive heart and chronic kidney disease with heart failure and stage 1 through stage 4 chronic kidney disease, or unspecified chronic kidney disease (principal); I50.33 Acute on chronic diastolic (congestive) heart failure; N18.2 Chronic kidney disease, stage 2 (mild); E11.22 Type 2 diabetes mellitus with diabetic chronic kidney disease; I48.91 Unspecified atrial fibrillation; E11.40 Type 2 diabetes mellitus with diabetic neuropathy, unspecified; E83.42 Hypomagnesemia; E78.5 Hyperlipidemia, unspecified; D63.8 Anemia in other chronic diseases classified elsewhere; R51.9 Headache, unspecified; G47.33 Obstructive sleep apnea (adult) (pediatric); Z99.81 Dependence on supplemental oxygen; Z79.01 Long term (current) use of anticoagulants; Z79.899 Other long term (current) drug therapy; Z87.891 Personal history of nicotine dependence
CPT/HCPCS: 36415; 71046; 80048; 81001; 82947; 83735; 83880; 84100; 84484; 85025; 93005; 93306; 94660; 94760; 96365; 96366; 96368; 99285; J1940; J3475; J3480